=== PATIENT | male | born 1985 | race Caucasian/White ===

== ENCOUNTER 2016-10-10 12:49 | Emergency (ER) | payer MEDICAID ==
[~2016-10-10] VITALS: Ht 193 cm; Wt 81.6 kg
[~2016-10-10 12:49] MED LIST: BACTRIM DS 8001 TAB PO; GICOCKTAIL PO; LORTAB 5/3251 TAB PO; MINOCIN50 MG PO; NATURAL VITAM1000 MG PO; NOMEDS XX; PROTONIX 40MG T40 MG PO; TAMIFLU 75MG CA75 MG PO; TESSALON PERLE100 MG PO; ULTRAM50 MG PO; ZANTAC 150150 MG PO
[2016-10-10] MEDS ORDERED: ESCITALOPRAM10 M1 PO (13:06)
[2016-10-10] MEDS ORDERED: HYDROXYZINE PAM25 MG PO (13:07)
--- NOTE | 2016-10-10 13:17 | Urgent Treatment Center Report ---
History of Present Issue Date/Time Seen by Provider 10/10/16 1313 Visit Reason Pt arrived:Walked Presenting Problem:BURNING SENSATION ON PENIS HEAD. HAS HAD UNPROTECTED SEX WITH GF 5 DAYS PRIOR TO PAIN. PT STATES PAIN IS ONLY ON THE TIP OF HIS PENIS. DENIES REDNESS, DRAINAGE. Location if Accident: Onset of symptoms date/time:/ or onset unknown for:MEDICAL HX UNKNOWN Have you (or family members/close friends) recently traveled outside the [place]? N If Yes, where/when: Have you had exposure to infectious disease within the past month? TB? Other? Specify: Patient state that he drank alcohol on Saturday night and then played basketball all day on Saturday and didn't drink water states that he drank alot of pop on Saturday and noticed that he was urinating alot and urine was dark in color. States that he has a history of kidney stones. States that now he has an area on the head of his penis that has a burning sensation States that he recently had unprotected sex around 5 days ago denies redness, denies drainage ALLERGIES Coded Allergies: No Known Allergies (04/09/16) Home Medications Reported Medications Escitalopram Oxalate 10 MG PO DAILY #30 Hydroxyzine Pamoate 25 MG PO DAILY #60 History Medical History General CAD? No Angina: No NV: No Hypertension? No Hyperlipidemia? No CHF? No DVT? No PE? No COPD? No Asthma? No Anemia? No GERD? No Gastric ulcers? No GI Bleed? No Hernia? Yes Thyroid Problems? No Hypothyroidism? No CVA? No Seizures? No Diabetes? No Renal Insuffiency? No UTI? Yes Stones? Yes BPH? No GB Disease: No Nephritic Syndrome? No Asplenia? No Hepatitis? No Sickle Cell Disease? No Arthritis? Yes Migraines? Yes Cataracts? No Glaucoma? No MRSA? No HIV? No TB? No Anxiety? Yes Depression? No Cancer? No More? No Immunization HX DT/Tetanus 5-10 Years Ago Flu Refused Pneumonia Refuses Surgical Hx Previous Surgery?Y LT LEG AMPUTATION TONSILS/ADENOIDECTOMY LT WRIST GANGLION CYST RIGHT KNEE ARTHROSCOPY LT INGUINAL HERNIA RIGHT KNEE LUMP IN CHEST REMOVED Family History Family HX Diabetes Yes CAD No Hypertension No Hyperlipidemia No Cancer Yes TB No Social History Smoking Hx Smoker: Never Smoker Tobacco: No Packs/day N/A Alcohol Alcohol: No Review of Systems All Other Systems Reviewed and Negative Genitourinary penis tenderness. Physical Exam Vital Signs Vital Signs Date Time Temp Pulse Resp B/P Pulse O2 O2 Flow FiO2 Ox Delivery Rate 10/10 1301 98.1 75 20 134/70 98 General Appearance normal appearance, WD/WN, no apparent distress Respiratory Status Yes: trachea midline, chest symmetrical, non tender chest. No: respiratory distress. 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 No Results/Orders Laboratory Tests 10/10/16 1318: Urine Color YELLOW, Urine Appearance Clear, Urine pH 8.5, Ur Specific [place] 1.020, Urine Protein NEGATIVE, Urine Ketones NEGATIVE, Urine Blood TRACE H, Urine Nitrate NEGATIVE, Urine Bilirubin NEGATIVE, Urine Urobilinogen 0.2, Ur Leukocyte Esterase NEGATIVE, Urine Glucose NEGATIVE Orders Procedure Date/time Status UTC URINE DIPSTICK 10/10 131 Complete CHL/GC URINE 10/10 1318 Active Departure Departure Time of Disposition 1321 Disposition DC Home or Self Care(routine) Clinical Impression Primary Impression: Penile pain Condition STABLE Referrals Danya TEAGUE,Reginaldo Chavez (Family): 3 Days-Call Office Additional Instructions Follow up in 3-5 days for results of urine send out Drink plenty of water Follow up with family doctor if symptoms continue Discharge Counseling Counseled pt/family regarding diagnosis, test results, home care, follow up needs at 1323
[2016-10-10 13:19] LABS: URINE BILIRUBIN - DIPSTICK NEGATIVE (NEG); URINE BLOOD TRACE (NEG)
[2016-10-10 13:27] VITALS: BP 134/70
[2016-10-12 10:39] LABS: Neisseria gonorrhoeae, NAA Negative (Negative)
--- OUTSIDE RECORDS SUMMARY | 2016-10-12 20:46 | External Medical Summary Rpt ---
Author Author , REX GOODMAN Address Unknown Phone [email or web address] Care Team Providers Care Telegraph Inspector Name Role Phone ALLRAN JR MANCILLA, ALLRAN Unavailable Unavailable JR LAURENT ARNOLD, ARNOLD Unavailable Unavailable ARNOLD, ARNOLD Unavailable Unavailable ARNOLD TWYLA, ARNOLD Unavailable Unavailable TWYLA ARNOLD TWYLA, ARNOLD Unavailable Unavailable TWYLA [facility] Unavailable Unavailable LIM[facility], [facility] OLIVARES ALL, OLIVARES ALL Unavailable Unavailable BAIRD RENATA, Unavailable Unavailable BAIRD RENATA [facility] Unavailable Unavailable ADULT & PED, [facility] Unavailable Unavailable [facility], [facility] ILIANA, ILIANA Unavailable Unavailable ILIANA BRUNILDA, Unavailable Unavailable ILIANA BRUNILDA FRYMAN, FRYMAN Unavailable Unavailable SARAH BETH MELI, SARAH BETH Unavailable Unavailable MELI [facility] & Unavailable Unavailable ORTHOTI, [facility] ORTHOTI [facility] & Unavailable Unavailable ORTHOTI, [facility] ORTHOTI [facility] Unavailable Unavailable &ORTHOTIC, [facility] &ORTHOTIC [facility] Unavailable Unavailable &ORTHOTIC, [facility] &ORTHOTIC [facility] Unavailable Unavailable INC, [facility] Unavailable Unavailable HOSPITAL P, [facility], Unavailable Unavailable [facility] KEDING, KEDING Unavailable Unavailable KEDING, KEDING Unavailable Unavailable KEDING PRASHANTH KED[facility] Unavailable Unavailable PRASHANTH [facility] Unavailable Unavailable IMAG[facility], [facility] Unavailable Unavailable [facility] Unavailable Unavailable [facility] Un[facility] Unavailable Un[facility] Unavailable Unavailable [facility], [facility] CORTEZ, CORTEZ Unavailable Unavailable ZEE SHE, Unavailable Unavailable ZEE SHE STROUB, STROUB Unavailable Unavailable DANIAL YANCY, DANIAL Unavailable Unavailable TRUDY RUBY Unavailable Unavailable TRUDY BARRERA Unavailable Unavailable Purpose Continuity of Care Document - 07-25-2012 through 2016 Problems Code Diagnosis DOS Provider Status M545 LOW BACK 07-19-2016 [facility] PAIN J40 BRONCHITIS 07-09-2016 [facility] NOT PHYSICIANS SPECIFIED GROUP ACUTE OR CHRONIC U43573 GANGLION 07-02-2016 [facility] RIGHT WRIST PHYSICIANS GROUP 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 [id number] ACQUIRED 06-15-2016 [facility] PROSTHETICS RIGHT LEG & ORTHOTI BELOW KNEE J71304 PAIN IN 04-09-2016 [place] [facility] G57616 PAIN IN 04-09-2016 [place] [facility] [id number] UNSPECIFIED 04-09-2016 [facility] LEFT HIP PLLC INITIAL ENCOUNTER [id number] CONTUSION 04-09-2016 [facility] OF LEFT PHYSICIANS, KNEE PLLC INITIAL ENCOUNTER Z0100 ENCOUNTER 02-29-2016 [facility] EXAM EYES & VISION W/O ABNORMAL FIND J069 ACUTE UPPER 02-28-2016 [facility] RESPIRATORY INFECTION UNSPECIFIED [id number] COMPLETE 05-13-2015 [facility] TRAUM AMP PROSTHETICS BETWN KNEE & ORTHOTI ANKLE UNS LEG INIT K3580 UNSPECIFIED 03-09-2015 [facility] APPENDICITI S K37 UNSPECIFIED 03-09-2015 [facility]IC[facility] S R1031 RIGHT LOWER 03-09-2015 [place] [facility] R1110 VOMITING 03-09-2015 [place] [facility]PEC[facility] R509 FEVER 03-09-2015 [place] [facility]PECIF[facility] D290 BENIGN 02-15-2015 [facility] [place] [facility] B999 UNSPECIFIED 01-31-2015 [facility] INFECTIOUS DISEASE 4871 INFLUENZA 05-06-2014 [facility] WITH OTHER [facility] P MANIFESTATI ONS 27080 OTHER ACUTE 04-07-2014 [facility] 6111 HYPERTROPHY 04-07-2014 [facility] 00892 LUMP OR 04-07-2014 [facility] BREAST [facility] 8970 TRAUMAT AMP 01-08-2014 [facility] LEG UNILAT PROSTHETICS BELW KNEE &ORTHOTIC W/O COMP 7851 PALPITATION 07-23-2013 TRUDY SASHA S K37 UNSPECIFIED APPENDICITI S Medications Na ND Rx Da Fi Fi Am Da Di Ph RX Ph St me C No te ll ll ou ys ag ar # ys at rm s nt no ma ic us Or Da si cy ia de te s n re d ES 68 07 08 30 30 00 WA Ac CI 64 -0 -0 .0 00 L- ti TA 50 7- 4- 00 07 MA ve LO 51 20 20 49 RT NJ 95 17 17 75 AM 4 43 PH AR 10 MA CY MG #5 TA 91 BL ET HY 00 07 08 60 [address] 18 -0 -0 .0 00 L- ti OX 50 7- 4- 00 07 MA ve YZ 67 20 20 49 RT IN 40 17 17 75 E 1 54 PH PA AR M MA 25 CY MG #5 91 CA P ES 68 06 07 14 14 00 WA Ac CI 64 -2 -2 .0 00 L- ti TA 50 6- 1- 00 07 MA ve LO 51 20 20 49 RT NJ 95 17 17 56 AM 4 07 PH AR 10 MA CY MG #5 TA 91 BL ET HY 00 06 07 [address] 18 -2 -2 .0 00 L- ti OX 50 6- 1- 00 07 MA ve YZ 67 20 20 49 RT IN 40 17 17 56 E 1 10 PH PA AR M MA 25 CY MG #5 91 CA P VA 16 05 06 14 7 00 EA Ac LA 71 -2 -[address] ti CY 40 3- 6- 00 00 SI ve CL 69 20 20 48 DE OV 70 17 17 86 IR 1 26 PH AR HC MA L CY 1 GR OF AM CY NT TA HI BL AN ET A IN C AM 00 05 06 20 10 00 WA Ac OX 09 -0 -0 .0 00 L- ti IC 33 5- 2- 00 07 MA ve IL 10 20 20 48 RT LI 90 17 17 63 N 5 23 PH 50 AR 0 MA MG CY CA #5 PS 91 UL E AZ 59 05 05 6. 5 00 WA Ac IT 76 -0 -2 00 00 L- ti HR 23 1- 6- 0 07 MA ve OM 06 20 20 48 RT YC 00 17 17 54 IN 1 73 PH AR 25 MA 0 CY MG #5 TA 91 BL ET MU 68 04 05 22 7 00 WA Ac PI 46 -1 -0 .0 00 L- ti RO 20 0- 5- 00 07 MA ve CI 18 20 20 48 RT N 02 17 17 14 2% 2 62 PH AR OI MA NT CY ME NT #5 91 CARPIO 53 03 04 14 7 00 WA Ac LF 74 -2 -2 .0 00 L- ti AM 60 4- 1- 00 07 MA ve ET 27 20 20 47 RT HO 20 17 17 83 XA 5 38 PH ZO AR LE MA -T CY MP #5 DS 91 TA BL ET CE 68 03 04 14 7 00 WA Ac PH 18 -2 -1 .0 00 L- ti AL 00 2- 4- 00 07 MA ve EX 12 20 20 47 RT IN 20 17 17 80 2 27 PH 50 AR 0 MA MG CY CA #5 PS 91 UL E Results Labs Lab Lab Date Result Refere Interp Status Commen Order Detail nces retati t Range on Urinalysis macro (dipstick) panel in Urine (10-10-2016 13:18) Appeara Clear CLEAR complet nce of 017 ed Urine 13:18 Bilirub NEGATIV NEG complet in 017 E ed [Presen 13:18 ce] in Urine by Test strip Erythro TRACE NEG Abnorma complet cytes 017 l ed [Presen 13:18 ce] in Urine Color YELLOW YELLOW complet of 017 ed Urine 13:18 Ketones NEGATIV NEG complet 017 E ed [Presen 13:18 ce] in Urine by Automat ed test strip Leukocy NEGATIV NEG complet te 017 E ed esteras 13:18 e [Presen ce] in Urine by Automat ed test strip Nitrite NEGATIV NEG complet 017 E ed [Presen 13:18 ce] in Urine by Test strip Urobili 0.2 NEG complet nogen 017 ed [Presen 13:18 ce] in Urine by Test strip Streptococcus pyogenes Ag [Presence] in Unspecified specimen (09-21-2016 14:44) Strepto NOT NOTDETE complet coccus 017 DETECTE CTED ed pyogene 14:44 D s Ag [Presen ce] in Unspeci fied specime n CHLAMYDIA AND GONORRHEA TESTING (07-25-2012 09:15) Chlamyd NEGATIV complet ia 013 E ed trachom 09:15 atis rRNA [Presen ce] in Unspeci fied specime n by Probe & target amplifi cation method Neisser 05-17-2 NEGATIV complet ia 013 E ed gonorrh 09:15 oeae rRNA [Presen ce] in Unspeci fied specime n by Probe & target amplifi cation method Treponema pallidum IgG Ab [Presence] in Serum by Immunoassay (07-25-2012 09:15) Trepone 05-17-2 NON-CARLOS complet ma 013 CTIVE ed pallidu 09:15 m IgG Ab [Presen ce] in Serum by Immunoa ssay CHLAMYDIA AND GONORRHEA TESTING (07-25-2012 09:15) COLLECT 07-25-2 NA complet OR 013 ed 09:15 ETHNICI 05-17-2 WHITE, complet TY 013 NON-HIS ed 09:15 PANIC KIT -17-2 07-31-1 complet EXPIRAT 013 3 ed ION 09:15 DATE SYMPTOM 07-25- NO complet S 013 ed 09:15 REASON 07-25-2 VOLUNTE complet FOR 013 ER/MEDI ed REQUEST 09:15 ELIANE PROBLEM SPECIME 07-25-2 MALE complet N 013 URETHRA ed SOURCE 09:15 L PREGNAN 07-25-2 NO complet T 013 ed 09:15 CHART 07-25-2 NA complet NUMBER 013 ed 09:15 Chlamyd 07-25- Pending complet ia 013 ed trachom 09:15 atis rRNA [Presen ce] in Unspeci fied specime n by Probe & target amplifi cation method Neisser 07-25-2 Pending complet ia 013 ed gonorrh 09:15 oeae rRNA [Presen ce] in Unspeci fied specime n by Probe & target amplifi cation method Treponema pallidum IgG Ab [Presence] in Serum by Immunoassay (07-25-2012 09:15) COLLECT 07-25-2 NA complet OR 013 ed 09:15 ETHNICI 05-17-2 WHITE complet TY 013 ed 09:15 PURPOSE -17-2 DIAGNOS complet OF 013 TIC ed EXAM 09:15 SPECIME 07-25-2 BLOOD complet N 013 ed SOURCE 09:15 CHART 07-25-2 NA complet NUMBER 013 ed 09:15 Trepone -17-2 Pending complet ma 013 ed pallidu 09:15 m IgG Ab [Presen ce] in Serum by Immunoa ssay Procedures Procedure DOS Code Location Performer Comment CHIROPRAC 80564 [facility] TIC 7 MANIPULAT [place] SPINAL 1-2 REGIONS ASPIRATIO 23355 [facility] N&/INJECT 7 PHYSICIAN ION S GROUP GANGLION CYST ANY LOCATJ INJ J0702 [facility] BETAMETHA 7 PHYSICIAN SONE S GROUP ACETATE & PHOSPHATE 3 MG ADD LW L5673 RATE SETTER RATE SETTER EXT CSTM 7 PROSTHETI PROSTHETI MOLD/PRFA CS & CS & B FOR USE ORTHOTI ORTHOTI W/LOCK MECH INJ J0702 [facility] BETAMETHA 7 PHYSICIAN SONE S GROUP ACETATE & PHOSPHATE 3 MG ASPIRATIO 16868 [facility] N&/INJECT 7 PHYSICIAN ION S GROUP GANGLION CYST ANY LOCATJ RADEX HIP [address] [place] [address] MEDICAL UNILATERA IMAGING L WITH ASS PELVIS 2-3 VIEWS RADIOLOGI 63834 [facility] 7 MEDICAL EXAMINATI IMAGING ON KNEE 3 ASS VIEWS OPHTH 33676 [facility] 6 XM&EVAL COMPRE NEW PT 1/> VST [facility] [address] [place] TIC 6 [place]AT [place] SPINAL 1-2 REGIONS [facility] [address] [place] TIC 6 PRASHANTH PRASHANTH MANIPULAT [place] SPINAL 1-2 REGIONS [facility] [address] [place] TIC 6 PRASHANTH PRASHANTH MANIPULAT [place] SPINAL 1-2 REGIONS [facility] [address]89[address] [place] TIC 6 PRASHANTH PRASHANTH MANIPULAT [place] SPINAL 1-2 REGIONS CHIROPRA 01415 [place] TIC 6 PRASHANTH PRASHANTH MANIPULAT [place] SPINAL 1-2 REGIONS [facility] 11302 [place] TIC 6 PRASHANTH PRASHANTH MANIPULAT [place] SPINAL 1-2 REGIONS [facility] [address]415 [place] TIC 6 PRASHANTH PRASHANTH MANIPULAT [place] SPINAL 1-2 REGIONS [facility] [address]857 [place] TIC 6 PRASHANTH PRASHANTH MANIPULAT [place] SPINAL 1-2 REGIONS [facility] L5637 RATE SETTER RATE SETTER LOWER 6 PROSTHETI PROSTHETI EXTREMITY CS & CS & BELOW ORTHOTI ORTHOTI KNEE TOTAL CNTC ADD LW L5671 RATE SETTER RATE SETTER EXTRM 6 PROSTHETI PROSTHETI BELW/ABVE CS & CS & KNEE ORTHOTI ORTHOTI SUSP LOCK [facility] ADDITION L5620 RATE SETTER RATE SETTER LOWER 6 PROSTHETI PROSTHETI EXTREMITY CS & CS & TEST ORTHOTI ORTHOTI SOCKET BELOW KNEE ADDITION L5629 RATE SETTER RATE SETTER LOWER 6 PROSTHETI PROSTHETI EXTREM CS & CS & BELOW ORTHOTI ORTHOTI KNEE ACRYLIC SOCKET ADD L5910 RATE SETTER RATE SETTER ENDOSKEL 6 PROSTHETI PROSTHETI SYSTEM CS & CS & BELOW ORTHOTI ORTHOTI KNEE ALIGNABLE SYSTEM ALL LOW L5986 RATE SETTER RATE SETTER EXTREM 6 PROSTHETI PROSTHETI PROSTH CS & CS & MULTI-AXI ORTHOTI ORTHOTI AL ROTATION UNIT PROSTHETI L8470 RATE SETTER RATE SETTER C SOCK 6 PROSTHETI PROSTHETI SINGLE CS & CS & PLY ORTHOTI ORTHOTI FITTING BELOW KNEE EA ALL LW L5987 RATE SETTER RATE SETTER XTRM 6 PROSTHETI PROSTHETI PRSTH CS & CS & SHNK FT ORTHOTI ORTHOTI SYS W/VRTCL LOAD PYLN BELW KNEE L5301 RATE SETTER RATE SETTER MOLD 6 PROSTHETI PROSTHETI SOCKT CS & CS & PATTEN SACH ORTHOTI ORTHOTI FT ENDOSKEL SYS ADD LW L5673 RATE SETTER RATE SETTER EXT CSTM 6 PROSTHETI PROSTHETI MOLD/PRFA CS & CS & B FOR USE ORTHOTI ORTHOTI W/LOCK [facility] PROSTHETI L8420 RATE SETTER RATE SETTER C SOCK 6 PROSTHETI PROSTHETI MULTIPLE CS & CS & PLY BELOW ORTHOTI ORTHOTI KNEE EACH ADD LW L5645 RATE SETTER RATE SETTER EXT BELW 6 PROSTHETI PROSTHETI KNEE CS & CS & FLXIBLE ORTHOTI ORTHOTI INNR SOCKT EXT FRME ADD L5940 RATE SETTER RATE SETTER ENDOSKEL 6 PROSTHETI PROSTHETI SYSTEM CS & CS & BELW KNEE ORTHOTI ORTHOTI [facility] MAT[facility] INJ J2543 [facility] PIPERACIL 5 [facility] WAQAR INC INC SOD/TAZOB ACTAM SOD 1 G/0.125 G BLOOD 26258 [facility] COUNT 5 [facility] COMPLETE INC INC AUTO&AUTO DIFRNTL WBC COLLECTIO 87435 [facility] N VENOUS 5 [facility] BLOOD INC INC [facility] G0378 [facility] OBSERVATI [facility] ON INC INC SERVICE [facility] G0378 [facility] OBSERVATI 5 [facility] ON INC INC SERVICE PER HOUR URNLS DIP 45403 [facility] 5 [facility] STICK/TAB INC INC LET REAGENT AUTO MICROSCOP Y LAPAROSCO 97401 [facility] PIC 5 PHYSICIAN LAURENT APPENDECT S GROUP PAOLO COMPREHEN 32170 [facility] SIVE 5 [facility] METABOLIC INC INC PANEL LEVEL III 56933 [facility] SURG 5 [facility] PATHOLOGY GROSS&MELI ROSCOPIC EXAM NONINVASI 31085 [facility] VE 5 [facility] EAR/PULSE INC INC OXIMETRY SINGLE DETER BLOOD 06473 [facility] COUNT 5 [facility] COMPLETE INC INC AUTO&AUTO DIFRNTL WBC INJ J2543 [facility] PIPERACIL 5 [facility] WAQAR INC INC SOD/TAZOB ACTAM SOD 1 G/0.125 G INJECTION J2405 [facility] ONDANSETR INC INC ON HCL PER 1 MG ANESTHESI 74366 [facility] 5 ANESTH SHE INTRAPERI OF THE TONEAL BLUE LOWER ABD W/LAPS NOS INJECTION J0131 [facility] ACETAMINO INC INC PHEN 10 MG INJECTION J2710 [facility] NEOSTIGMI INC INC NE [place]ETHYLS[place] [address] [place] [address] [place] OL[facility]AR[facility] ALL ABDOMEN & 5 MEDICAL PELVIS IMAGING W/O ASS CONTRAST MATERIAL BLOOD 75176 [facility] COUNT 5 [facility] COMPLETE INC INC AUTO&[place] [address] [facility] INFUSION 5 [facility] THERAPY/P INC INC ROPHYLAXI S /DX 1ST TO 1 HR COMPREHEN 31451 [facility] SIVE 5 [facility] METABOLIC INC INC PANEL IAADI 81747 [facility] INFLUENZA 5 [facility] B VIRUS INC INC IAADI 57094 [facility] INFFLUENZ 5 [facility] A A VIRUS INC INC BIOPSY 92686 [facility] BREAST 5 [facility] [place] [address] [facility] SURG [facility] PATHOLOGY GROSS&MELI ROSCOPIC EXAM INJECTION J0131 [facility]AND 5 [facility] ACETAMINO INC INC PHEN 10 MG INJECTION J2405 [facility] 5 [facility] ONDANSETR INC INC ON HCL PER 1 MG ANES 53854 [facility] INTE 5 ANESTH YANCY EXTREMITI OF THE ES ANT BLUE TRUNK & PERINEUM NOS US BREAST 10698 [facility] UNI REAL 5 [facility] TIME INC INC WITH IMAGE COMPLETE US BREAST 72874 [facility] UNI REAL 5 MEDICAL BRUNILDA TIME IMAGING WITH ASS IMAGE LIMITED ADD LW L5671 RATE SETTER RATE SETTER EXTRM 4 PROSTHETI PROSTHETI BELW/ABVE CS CS KNEE &ORTHOTIC &ORTHOTIC SUSP LOCK [facility] ADDITION L5637 RATE SETTER RATE SETTER LOWER 4 PROSTHETI PROSTHETI EXTREMITY CS CS BELOW &ORTHOTIC &ORTHOTIC KNEE TOTAL CNTC ADDITION L5629 RATE SETTER RATE SETTER LOWER 4 PROSTHETI PROSTHETI EXTREM CS CS BELOW &ORTHOTIC &ORTHOTIC KNEE ACRYLIC SOCKET ADDITION L5620 RATE SETTER RATE SETTER LOWER 4 PROSTHETI PROSTHETI EXTREMITY CS CS TEST &ORTHOTIC &ORTHOTIC SOCKET BELOW KNEE PROSTHETI L8420 RATE SETTER RATE SETTER C SOCK 4 PROSTHETI PROSTHETI MULTIPLE CS CS PLY BELOW &ORTHOTIC &ORTHOTIC KNEE EACH ADD L5940 RATE SETTER RATE SETTER ENDOSKEL 4 PROSTHETI PROSTHETI SYSTEM CS CS BELW KNEE &ORTHOTIC &ORTHOTIC ULTRA-[facility] T MATL ADD LW L5645 RATE SETTER RATE SETTER EXT BELW 4 PROSTHETI PROSTHETI KNEE CS CS FLXIBLE &ORTHOTIC &ORTHOTIC INNR SOCKT EXT FRME ADD LW L5673 RATE SETTER RATE SETTER EXT CSTM 4 PROSTHETI PROSTHETI MOLD/PRFA CS CS B FOR USE &ORTHOTIC &ORTHOTIC W/LOCK MECH BELW KNEE L5301 RATE SETTER RATE SETTER MOLD 4 PROSTHETI PROSTHETI SOCKT CS CS PATTEN SACH &ORTHOTIC &ORTHOTIC FT ENDOSKEL SYS PROSTHETI L8470 BLUE BLUE C SOCK 4 GRASS GRASS SINGLE ARTIFICIA ARTIFICIA PLY L LIMB C L LIMB C FITTING BELOW KNEE EA ADD L5910 RATE SETTER RATE SETTER ENDOSKEL 4 PROSTHETI PROSTHETI SYSTEM CS CS BELOW &ORTHOTIC &ORTHOTIC KNEE ALIGNABLE SYSTEM [facility] 82611 [facility] REAL 4 [facility] TIME INC INC W/IMAGE DOCUMENTA TION Encounters Encounter Start End Date Code Location Performer Type Date OFFICE 98176 [facility] 7 7 T VISIT 10 MINUTES OFFICE 12335 [facility] OUTPATIEN 7 7 PHYSICIAN T VISIT S GROUP 25 MINUTES OFFICE 48884 [facility] OUTPATI[facility] 7 7 PHYSICIAN T VISIT S GROUP 15 MINUTES OFFICE 20196 [facility] OUTPATIEN 7 7 PHYSICIAN T NEW 20 S GROUP MINUTES EMERGENCY 24503 [facility] RATLIFF 7 7 PHYSICIAN DEPARTMEN S, PLLC T VISIT HIGH/URGE NT SEVERITY OFFICE 91252 [facility] T VISIT 5 INC MINUTES [facility]OSP[facility] OUTPATIEN INC T OFFICE 82359 [facility] 6 6 T VISIT 15 MINUTES OFFICE 42785 [facility] 6 6 TWYLA TWYLA T VISIT 15 MINUTES OFFICE 43377 [facility] 6 6 PRASHANTH PRASHANTH T NEW 30 MINUTES EMERGENCY 72790 [facility] DEPT 5 5 [facility] VISIT INC HIGH SEVERITY& THREAT [facility] 5 [facility] OUTPATIEN INC T OFFICE 67734 [facility] 5 5 [place] R[facility] ION ADULT & NEW/ESTAB PED PATIENT 30 MIN OFFICE 34783 [facility] OUTPATI[facility] 5 5 TWYLA TWYLA T VISIT 15 MINUTES EMERGENCY 15561 [facility] 5 5 [facility] DEPARTMEN INC T VISIT MODERATE SEVERITY [facility]OSP[facility] OUTPATIEN INC T [facility] OUTPATIEN INC T OFFICE 86638 [facility] JR OUTPATIEN 5 5 PHYSICIAN LAURENT T VISIT S GROUP 15 MINUTES HOSPITAL [facility] 5 [facility] OUTPATIEN INC T OFFICE 02292 [facility] OUTPATI[facility] 5 5 PHYSICIAN LAURENT T NEW 30 S GROUP MINUTES OFFICE 60699 [facility] 4 PHYSICIAN MELI T NEW 20 S GROUP MINUTES [facility] OUTPATIEN INC T [facility] 4 4 [facility] OUTPATIEN INC T EMERGENCY 55550 [facility] 4 4 [facility] DEPARTMEN INC T VISIT LOW/MODER SEVERITY EMERGENCY 25509 TRUDY BAEZ 4 4 DEPARTMEN T VISIT HIGH/URGE NT SEVERITY
--- OUTSIDE RECORDS SUMMARY | 2016-10-12 20:46 | External Medical Summary Rpt ---
Author Author , REX GOODMAN Address Unknown Phone [email or web address] Team Providers Care Statistics Intern Name Role Phone ALLRAN JR MANCILLA, ALLRAN [...] BETH MELI, SARAH BETH Unavailable Unavailable MELI [facility] & Unavailable Unavailable ORTHOTI, [facility] & ORTHOTI [facility] & Unavailable Unavailable ORTHOTI, [facility] & ORTHOTI [facility] Unavailable Unavailable &ORTHOTIC, TESTER [facility]MAT[facility] [employer] &ORTHOTIC [facility] Unavailable Unavailable &ORTHOTIC, TESTER ARMATURE [facility] &ORTHOTIC [facility] Unavailable Unavailable INC, [facility] Unavailable Unavailable [facility]PITAL P, [facility], Unavailable Unavailable [facility], KEDING Unavailable Unavailable K[facility], K[facility]ING Unavailable Unavailable [facility] PRASHANTH [facility] Unavailable Unavailable PRASHANTH [facility] Unavailable Unavailable [facility], [facility] Unavailable Unavailable [...] BACK 07-19-2016 [place] PAIN J40 BRONCHITIS 07-09-2016 [facility] NOT PHYSICIANS SPECIFIED GROUP ACUTE OR CHRONIC [id number] GANGLION 07-02-2016 [facility] RIGHT WRIST PHYSICIANS GROUP 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-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 X13195 ACQUIRED 06-15-2016 [facility] ABSENCE OF PROSTHETICS RIGHT LEG & ORTHOTI BELOW KNEE B14168 PAIN IN 04-09-2016 [place] [facility] K71231 PAIN IN 04-09-2016 [place] LEFT [facility]EE [facility] [id number] UNSPECIFIED 04-09-2016 [facility] PH[facility]ICIANS, LEFT HIP PLLC INITIAL ENCOUNTER [id number] CONTUSION 04-09-2016 ANJEL OF LEFT PHYSICIANS, KNEE PLLC INITIAL ENCOUNTER Z0100 ENCOUNTER 02-29-2016 AR[facility]EL EXAM EYES & VISION W/O ABNORMAL FIND J069 ACUTE UPPER 02-28-2016 [facility] RESPIRATORY INFECTION UNSPECIFIED [id number] COMPLETE 05-13-2015 [facility] TRAUM AMP PROSTHETICS BETWN KNEE & ORTHOTI ANKLE UNS LEG INIT K3580 UNSPECIFIED 03-09-2015 [facility] APPENDICITI S K37 UNSPECIFIED 03-09-2015 [facility] PHYSICIANS, APPENDICITI PLLC S R1031 RIGHT LOWER 03-09-2015 [place] [facility] R1110 VOMITING 03-09-2015 [place] UNSPECIFIED [facility]ICAL IM[facility]ING ASS R509 FEVER 03-09-2015 [place] [facility]PEC[facility]IED [facility] D290 BENIGN 02-15-2015 [facility] [place] PEN[facility] ADULT & PED B999 UNSPECIFIED 01-31-2015 [facility] INFECTIOUS DISEASE 4871 INFLUENZA 05-06-2014 [facility] WITH OTHER [facility] P MANIFESTATI ONS 62792 OTHER ACUTE 04-07-2014 [facility] PAIN PHYSICIANS GROUP 6111 HYPERTROPHY 04-07-2014 [facility] 97390 LUMP OR 04-07-2014 [facility] IN ANESTH OF BREAST THE BLUE 8970 TRAUMAT AMP 01-08-2014 TE[facility]MAT[facility] FIELDS LEG UNILAT PROSTHETICS BELW KNEE &ORTHOTIC W/O [...] ve LO 51 20 20 49 RT AK 95 17 17 75 AM 4 43 [...] ve LO 51 20 20 49 RT AK 95 17 17 56 AM 4 07 [...] Procedure DOS Code Location Performer Comment CHIROPRAC 19427 BUT[facility] RAE TIC 7 [place]AT [place] SPINAL 1-2 [facility] ASPIRATIO 91707 [facility] N&/INJECT 7 PHYSICIAN ION S GROUP GANGLION CYST ANY LOCATJ INJ J0702 [facility] BETAMETHA 7 PHYSICIAN SONE S GROUP ACETATE & PHOSPHATE 3 MG ADD LW L5673 [facility] TESTER ARMATURE OR FIELDS EXT CSTM 7 PROSTHETI PROSTHETI MOLD/PRFA CS & CS & B FOR USE ORTHOTI ORTHOTI W/LOCK MECH INJ J0702 [facility] BETAMETHA 7 PHYSICIAN SONE S GROUP ACETATE & PHOSPHATE 3 MG ASPIRATIO 10598 [facility] N&/INJECT 7 PHYSICIAN ION S GROUP GANGLION CYST ANY LOCATJ RADEX HIP [address] [place] [address] [facility] UN[facility]ATERA IMAGING L WITH ASS PELVIS 2-3 VIEWS RADIOLOGI 84420 PSYCHIATRIC 7 MEDICAL EXAMINATI IMAGING ON KNEE 3 ASS VIEWS OPHTH 19162 [facility] 6 XM&EVAL COMPRE NEW PT 1/> [facility] [address] [place] TIC 6 MANIP[place]AT [place] SPINAL 1-2 REGIONS [facility] 37323 [place] TIC 6 PRASHANTH PRASHANTH MANIPULAT [place] TX SPINAL 1-2 REGIONS [facility] 15482 [place] TIC 6 PRASHANTH PRASHANTH MANIPULAT [place] TX SPINAL 1-2 REGIONS [facility] 90934 [place] TIC 6 PRASHANTH PRASHANTH MANIPULAT [place] TX SPINAL 1-2 REGIONS CHIROPRA 24217 [place] TIC 6 PRASHANTH PRASHANTH MANIPULAT [place] SPINAL 1-2 REGIONS [facility] 57409 [place] TIC 6 PRASHANTH PRASHANTH MANIPULAT [place] SPINAL 1-2 REGIONS [facility] [address]97 [place] TIC 6 PRASHANTH PRASHANTH [place]IPULAT [place] SPINAL 1-2 [facility] 07447 [place] TIC 6 PRASHANTH PRASHANTH [place]IPULAT [place] SPINAL 1-2 REGIONS [facility] L5637 TESTER ARMATURE OR FIELDS TESTER ARMATURE OR FIELDS LOWER 6 PROSTHETI PROSTHETI EXTREMITY CS & CS & BELOW ORTHOTI ORTHOTI KNEE TOTAL CNTC ADD LW L5671 TESTER ARMATURE OR FIELDS TESTER ARMATURE OR FIELDS EXTRM 6 PROSTHETI PROSTHETI BELW/ABVE CS & CS & KNEE ORTHOTI ORTHOTI SUSP LOCK [facility] ADDITION L5620 TESTER ARMATURE OR FIELDS TESTER ARMATURE OR FIELDS LOWER 6 PROSTHETI PROSTHETI EXTREMITY CS & CS & TEST ORTHOTI ORTHOTI SOCKET BELOW KNEE ADDITION L5629 TESTER ARMATURE OR FIELDS TESTER ARMATURE OR FIELDS LOWER 6 PROSTHETI PROSTHETI EXTREM CS & CS & BELOW ORTHOTI ORTHOTI KNEE ACRYLIC SOCKET ADD L5910 TESTER ARMATURE OR FIELDS TESTER ARMATURE OR FIELDS ENDOSKEL 6 PROSTHETI PROSTHETI SYSTEM CS & CS & BELOW ORTHOTI ORTHOTI KNEE ALIGNABLE SYSTEM ALL LOW L5986 TESTER ARMATURE OR FIELDS TESTER ARMATURE OR FIELDS EXTREM 6 PROSTHETI PROSTHETI PROSTH CS & CS & MULTI-AXI ORTHOTI ORTHOTI AL ROTATION UNIT PROSTHETI L8470 TESTER ARMATURE OR FIELDS TESTER ARMATURE OR FIELDS C SOCK 6 PROSTHETI PROSTHETI SINGLE CS & CS & PLY ORTHOTI ORTHOTI FITTING BELOW KNEE EA ALL LW L5987 TESTER ARMATURE OR FIELDS TESTER ARMATURE OR FIELDS XTRM 6 PROSTHETI PROSTHETI PRSTH CS & CS & SHNK FT ORTHOTI ORTHOTI SYS W/VRTCL LOAD PYLN BELW KNEE L5301 TESTER ARMATURE OR FIELDS TESTER ARMATURE OR FIELDS MOLD 6 PROSTHETI PROSTHETI SOCKT CS & CS & PATTEN SACH ORTHOTI ORTHOTI FT ENDOSKEL SYS ADD LW L5673 TESTER ARMATURE OR FIELDS TESTER ARMATURE OR FIELDS EXT CSTM 6 PROSTHETI PROSTHETI MOLD/PRFA CS & CS & B FOR USE ORTHOTI ORTHOTI W/LOCK [facility] PROSTHETI L8420 TESTER ARMATURE OR FIELDS TESTER ARMATURE OR FIELDS C SOCK 6 PROSTHETI PROSTHETI MULTIPLE CS & CS & PLY BELOW ORTHOTI ORTHOTI KNEE EACH ADD LW L5645 TESTER ARMATURE OR FIELDS TESTER ARMATURE OR FIELDS EXT BELW 6 PROSTHETI PROSTHETI KNEE CS & CS & FLXIBLE ORTHOTI ORTHOTI INNR SOCKT EXT FRME ADD L5940 TESTER ARMATURE OR FIELDS TESTER ARMATURE OR FIELDS ENDOSKEL 6 PROSTHETI PROSTHETI SYSTEM CS & CS & BELW KNEE ORTHOTI ORTHOTI [facility] INJ J2543 [facility] PIPERACIL 5 [facility] WAQAR INC INC SOD/TAZOB ACTAM SOD 1 G/0.125 G BLOOD 91558 [facility] COUNT 5 [facility] COMPLETE INC INC AUTO&AUTO DIFRNTL WBC COLLECTIO 84585 [facility] N VENOUS 5 [facility] BLOOD INC INC VENIPUNCT [facility] G0378 [facility] OBSERVATI 5 [facility] ON INC INC SERVICE PER [facility] G0378 [facility] [facility] OBSERVATI 5 [facility] ON INC INC SERVICE PER HOUR URNLS DIP 90680 [facility] RAND 5 [facility] STICK/TAB INC INC LET REAGENT AUTO MICROSCOP Y LAPAROSCO 35437 [facility] PIC 5 PHYSICIAN LAURENT APPENDECT S GROUP PAOLO COMPREHEN 45652 [facility] SIVE 5 [facility] METABOLIC INC INC PANEL LEVEL III 18264 [facility] SURG 5 [facility] PATHOLOGY GROSS&MELI ROSCOPIC EXAM NONINVASI 79034 [facility] VE 5 [facility] EAR/PULSE INC INC OXIMETRY SINGLE DETER BLOOD 68783 [facility] COUNT 5 [facility] COMPLETE INC INC AUTO&AUTO DIFRNTL WBC INJ J2543 [facility] PIPERACIL 5 [facility] WAQAR INC INC SOD/TAZOB ACTAM SOD 1 G/0.125 G INJECTION J2405 [facility] 5 [facility] ONDANSETR INC INC ON HCL PER 1 MG ANESTHESI 84229 [facility] A 5 ANESTH SHE INTRAPERI OF THE TONEAL BLUE LOWER ABD W/LAPS NOS INJECTION J0131 [facility] ACETAMINO INC INC PHEN 10 MG INJECTION J2710 [facility] NEOSTIGMI INC INC NE METHYLSUL [place] [address] [place] [address] [place] [facility] ALL ABDOMEN & 5 MEDICAL PELVIS IMAGING W/O ASS CONTRAST MATERIAL BLOOD 74798 [facility] COUNT 5 [facility] COMPLETE INC INC AUTO&[place] [address] [facility] [place] INFUSION 5 [facility] THERAPY/P INC INC ROPHYLAXI S /DX 1ST TO 1 HR COMPREHEN 68496 [facility] SIVE 5 [facility] METABOLIC INC INC PANEL IAADI 54188 [facility] INFLUENZA 5 [facility] B VIRUS INC INC IAADI 20648 [facility] INFFLUENZ 5 [facility] A A VIRUS INC INC BIOPSY 93520 [facility] BREAST 5 [facility] [place] [address] [facility] SURG 5 [facility] PATHOLOGY GROSS&MELI ROSCOPIC EXAM INJECTION J0131 [facility] 5 [facility] ACETAMINO INC INC PHEN 10 MG INJECTION J2405 [facility] 5 [facility] ONDANSETR INC INC ON HCL PER 1 MG ANES 35423 [facility] INTE 5 ANESTH YANCY EXTREMITI OF THE ES ANT BLUE TRUNK & PERINEUM NOS US BREAST 87620 [facility] UNI REAL 5 [facility] TIME INC INC WITH IMAGE COMPLETE US BREAST 35188 [facility] UNI REAL 5 MEDICAL BRUNILDA TIME IMAGING WITH ASS IMAGE LIMITED ADD LW L5671 TESTER ARMATURE OR FIELDS TESTER ARMATURE OR FIELDS EXTRM 4 PROSTHETI PROSTHETI BELW/ABVE CS CS KNEE &ORTHOTIC &ORTHOTIC SUSP LOCK [facility] ADDITION L5637 TESTER ARMATURE OR FIELDS TESTER ARMATURE OR FIELDS LOWER 4 PROSTHETI PROSTHETI EXTREMITY CS CS BELOW &ORTHOTIC &ORTHOTIC KNEE TOTAL CNTC ADDITION L5629 TESTER ARMATURE OR FIELDS TESTER ARMATURE OR FIELDS LOWER 4 PROSTHETI PROSTHETI EXTREM CS CS BELOW &ORTHOTIC &ORTHOTIC KNEE ACRYLIC SOCKET ADDITION L5620 TESTER ARMATURE OR FIELDS TESTER ARMATURE OR FIELDS LOWER 4 PROSTHETI PROSTHETI EXTREMITY CS CS TEST &ORTHOTIC &ORTHOTIC SOCKET BELOW KNEE PROSTHETI L8420 TESTER ARMATURE OR FIELDS TESTER ARMATURE OR FIELDS C SOCK 4 PROSTHETI PROSTHETI MULTIPLE CS CS PLY BELOW &ORTHOTIC &ORTHOTIC KNEE EACH ADD L5940 TESTER ARMATURE OR FIELDS TESTER ARMATURE OR FIELDS ENDOSKEL 4 PROSTHETI PROSTHETI SYSTEM CS CS BELW KNEE &ORTHOTIC &ORTHOTIC ULTRA-[facility] [place] MAT[place] ADD LW L5645 TESTER ARMATURE OR FIELDS TESTER ARMATURE OR FIELDS EXT BELW 4 PROSTHETI PROSTHETI KNEE CS CS FLXIBLE &ORTHOTIC &ORTHOTIC INNR SOCKT EXT FRME ADD LW L5673 TESTER ARMATURE OR FIELDS TESTER ARMATURE OR FIELDS EXT CSTM 4 PROSTHETI PROSTHETI MOLD/PRFA CS CS B FOR USE &ORTHOTIC &ORTHOTIC W/LOCK MECH BELW KNEE L5301 TESTER ARMATURE OR FIELDS TESTER ARMATURE OR FIELDS MOLD 4 PROSTHETI PROSTHETI SOCKT CS CS PATTEN SACH &ORTHOTIC &ORTHOTIC FT ENDOSKEL SYS PROSTHETI L8470 BLUE BLUE C SOCK 4 GRASS GRASS SINGLE ARTIFICIA ARTIFICIA PLY L LIMB C L LIMB C FITTING BELOW KNEE EA ADD L5910 TESTER ARMATURE OR FIELDS TESTER ARMATURE OR FIELDS ENDOSKEL 4 PROSTHETI PROSTHETI SYSTEM CS CS BELOW &ORTHOTIC &ORTHOTIC KNEE ALIGNABLE SYSTEM [facility] 48660 [facility] REAL 4 [facility] TIME INC INC W/IMAGE DOCUMENTA TION Encounters Encounter Start End Date Code Location Performer Type Date OFFICE 81628 [facility] OUTPATIEN 7 7 T VISIT 10 MINUTES OFFICE 17020 [facility] OUTPATIEN 7 7 PHYSICIAN T VISIT S GROUP 25 MINUTES OFFICE 76404 [facility] OUTPATIEN 7 7 PHYSICIAN T VISIT S GROUP 15 MINUTES OFFICE 26694 [facility] OUTPATIEN 7 7 PHYSICIAN T NEW 20 S GROUP MINUTES EMERGENCY 05010 [facility] RATLIFF 7 7 PHYSICIAN DEPARTMEN S, PLLC T VISIT HIGH/URGE NT SEVERITY OFFICE 63621 [facility] 7 7 [facility] T VISIT 5 INC MINUTES [facility] 7 7 [facility] OUTPATIEN INC T OFFICE 89577 [facility] OUTPATIEN 6 6 T VISIT 15 MINUTES OFFICE 14805 [facility] OUTPATIEN 6 6 TWYLA TWYLA T VISIT 15 MINUTES OFFICE 37731 [facility] OUTPATIEN 6 6 PRASHANTH PRASHANTH T NEW 30 MINUTES EMERGENCY 00738 [facility] DEPT 5 5 [facility] VISIT INC HIGH SEVERITY& THREAT [facility] - 5 5 [facility] OUTPATIEN INC T OFFICE 69823 [facility] 5 5 [place] R[place] ION ADULT & NEW/ESTAB PED PATIENT 30 MIN OFFICE 28360 [facility] OWENS OUTPATIEN 5 5 TWYLA TWYLA T VISIT 15 MINUTES EMERGENCY 28756 [facility] 5 5 [facility] DEPARTMEN INC T VISIT MODERATE SEVERITY [facility] 5 [facility] OUTPATIEN INC T [facility] 5 5 [facility] OUTPATIEN INC T OFFICE 47258 [facility] RUP[facility] JR OUTPATIEN 5 5 PHYSICIAN LAURENT T VISIT S GROUP 15 MINUTES [facility]OSP[facility] 5 5 [facility] OUTPATIEN INC T OFFICE 25363 [facility] [place] JR OUTPATIEN 5 5 PHYSICIAN LAURENT T NEW 30 S GROUP MINUTES OFFICE 96767 [facility] PHYSICIAN MELI T NEW 20 S GROUP MINUTES [facility] 4 [facility] OUTPATIEN INC T [facility] 4 4 [facility] OUTPATIEN INC T EMERGENCY 72438 [facility] 4 4 [facility] DEPARTMEN INC T VISIT LOW/MODER SEVERITY EMERGENCY 42062 [facility] BAEZ 4 4 DEPARTMEN T VISIT HIGH/URGE NT SEVERITY
--- OUTSIDE RECORDS SUMMARY | 2016-10-12 20:47 | External Medical Summary Rpt ---
Author Author CHIOLAYA Morrison, [employer] Organization [employer] Address Unknown Phone Unavailable Results Urinalysis macro (dipstick) panel in Urine Observa Value Referen Units Interpr Notes Date tion ce etation Range Appeara Clear CLEAR No No No Oct 2 nce of informa informa informa 2017 Urine tion in tion in tion in 1:18 PM source source source data data data Bilirub NEGATIV NEG No No No Oct 10 in E informa informa informa 2016 [Presen tion in tion in tion in 1:18 PM ce] in source source source Urine data data data by Test strip Erythro TRACE NEG No Abnorma No Oct 10 cytes informa l informa 2016 [Presen tion in tion in 1:18 PM ce] in source source Urine data data Color YELLOW YELLOW No No No Oct 2 of informa informa informa 2017 Urine tion in tion in tion in 1:18 PM source source source data data data Glucose NEG No No No Oct 2 [Mass/vol informati informati informati 2017 1:18 ume] in on in on in on in PM Urine by source source source Test data data data strip Ketones NEGATIV NEG mg/dL No No Oct 2 E informa informa 2016 [Presen tion in tion in 1:18 PM ce] in source source Urine data data by Automat ed test strip pH of 5.0 - 8.5 No Normal No Oct 2 Urine informati informati 2017 1:18 on in on in PM source source data data Protein NEG mg/dL No No Oct 2 [Mass/vol informati informati 2016 1:18 ume] in on in on in PM Urine by source source Automated data data test strip Specific 1.005 - No Normal No Oct 10 gravity 1.030 informati informati 2017 1:18 of Urine on in on in PM source source data data Leukocy NEGATIV NEG No No No Oct 2 te E informa informa informa 2017 esteras tion in tion in tion in 1:18 PM e source source source [Presen data data data ce] in Urine by Automat ed test strip Nitrite NEGATIV NEG No No No Oct 10 E informa informa informa 2016 [Presen tion in tion in tion in 1:18 PM ce] in source source source Urine data data data by Test strip Urobili 0.2 NEG E.U./dL No No Oct 10 nogen informa informa 2016 [Presen tion in tion in 1:18 PM ce] in source source Urine data data by Test strip Chlamydia/GC Amplification Observa Value Referen Units Interpr Notes Date ti ce etation Range Chlamyd Negativ Negativ No No No Oct 10 ia e e informa informa informa 2017 trachom tion in tion in tion in 1:15 PM atis source source source rRNA data data data [Presen ce] in Unspeci fied specime n by Probe & target amplifi cation method Neisser Negativ Negativ No No Perform Oct 10 ia e e informa informa ed at: 2017 gonorrh tion in tion in CB - 1:15 PM oeae source source [facility] rRNA data data [Presen [place] ce] in [address], specime [place], [place] Probe & [id number] target 69Lab Directo amplifi r: cation Vincent method Mark ti PhD, Phone: [phone] Streptococcus pyogenes Ag [Presence] in Unspecified specimen Observa Value Referen Units Interpr Notes Date tion ce etation Range Strepto NOT NOTDETE No No LOT # Sep 21 coccus DETECTE CTED informa informa N/A EXP 2017 pyogene D tion in tion in DATE 2:44 PM s Ag source source N/A [Presen data data ce] in Unspeci fied specime n CHLAMYDIA AND GONORRHEA TESTING Observa Value Referen Units Interpr Notes Date tion ce etation Range COLLECT NA No No No No July 25 OR informa informa informa informa 2013 tion in tion in tion in tion in 9:15 AM source source source source data data data data ETHNICI WHITE, No No No No July 25 TY NON-HIS informa informa informa informa 2013 PANIC tion in tion in tion in tion in 9:15 AM source source source source data data data data KIT 07-31-1 No No No No July 25 EXPIRAT 3 informa informa informa informa 2013 ION tion in tion in tion in tion in 9:15 AM DATE source source source source data data data data SYMPTOM NO No No No No July 25 S informa informa informa informa 2013 tion in tion in tion in tion in 9:15 AM source source source source data data data data REASON VOLUNTE No No No No July 25 FOR ER/MEDI informa informa informa informa 2013 REQUEST ELIANE tion in tion in tion in tion in 9:15 AM PROBLEM source source source source data data data data SPECIME MALE No No No No July 25 N URETHRA informa informa informa informa 2013 SOURCE L tion in tion in tion in tion in 9:15 AM source source source source data data data data PREGNAN NO No No No No July 25 T informa informa informa informa 2013 tion in tion in tion in tion in 9:15 AM source source source source data data data data CHART NA No No No No July 25 NUMBER informa informa informa informa 2013 tion in tion in tion in tion in 9:15 AM source source source source data data data data Chlamyd NEGATIV No No No NEGATIV July 25 ia E informa informa informa E 2013 trachom tion in tion in tion in RESULT= 9:15 AM atis source source source WITHIN rRNA data data data NORMAL [Presen ce] in LIMITSP Unspeci OSITIVE fied specime RESULT= n by Probe & ABNORMA target LEQUIVO ELIANE amplifi RESULT= cation method INDETER MINATEU NSATISF ACTORY RESULT= INVALID Neisser NEGATIV No No No NEGATIV July 25 ia E informa informa informa E 2013 gonorrh tion in tion in tion in RESULT= 9:15 AM oeae source source source WITHIN rRNA data data data NORMAL [Presen ce] in LIMITSP Unspeci OSITIVE fied specime RESULT= n by Probe & ABNORMA target LEQUIVO ELIANE amplifi RESULT= cation method INDETER MINATEU NSATISF ACTORY RESULT= INVALID THE APTIMA COMBO 2 ASSAY IS NOT INTENDE D FOR THE EVALUAT ION OF SUSPECT EDSEXUA L ABUSE OR FOR OTHER MEDICO- LEGAL INDICAT IONS. FOR THOSE PATIENT S FORWHOM A FALSE POSITIV E RESULT MAY HAVE ADVERSE PSYCHO- SOCIAL IMPACT, [facility] MM[facility]DS RETESTI NG.\.br \This report contain s patient informa tion that must be protect ed in [facility] with the Health Insuran ce Portabi lity and Account ability Act. Treponema pallidum IgG Ab [Presence] in Serum by Immunoassay Observa Value Referen Units Interpr Notes Date tion ce etation Range COLLECT NA No No No No July 25 OR informa informa informa informa 2013 tion in tion in tion in tion in 9:15 AM source source source source data data data data ETHNICI WHITE No No No No July 25 TY informa informa informa informa 2013 tion in tion in tion in tion in 9:15 AM source source source source data data data data PURPOSE DIAGNOS No No No No July 25 OF TIC informa informa informa informa 2013 EXAM tion in tion in tion in tion in 9:15 AM source source source source data data data data SPECIME BLOOD No No No No July 25 N informa informa informa informa 2013 SOURCE tion in tion in tion in tion in 9:15 AM source source source source data data data data CHART NA No No No No July 25 NUMBER informa informa informa informa 2013 tion in tion in tion in tion in 9:15 AM source source source source data data data data Trepone NON-CARLOS No No No METHOD [address] informa informa informa OF 2013 pallidu tion in tion in tion in ANALYSI 9:15 AM m IgG source source source S: Ab data data data EIANORM [Presen AL ce] in RANGE: Serum NON-CARLOS by CTIVE\. Immunoa br\This ssay report contain s patient informa tion that must be protect ed in [facility] with the Health Insuran ce Portabi lity and Account ability Act. CHLAMYDIA AND GONORRHEA TESTING Observa Value Referen Units Interpr Notes Date tion ce etation Range COLLECT NA No No No No July 25 OR informa informa informa informa 2013 tion in tion in tion in tion in 9:15 AM source source source source data data data data ETHNICI WHITE, No No No No July 25 TY NON-HIS informa informa informa informa 2013 PANIC tion in tion in tion in tion in 9:15 AM source source source source data data data data KIT 07-31-1 No No No No July 25 EXPIRAT 3 informa informa informa informa 2013 ION tion in tion in tion in tion in 9:15 AM DATE source source source source data data data data SYMPTOM NO No No No No July 25 S informa informa informa informa 2013 tion in tion in tion in tion in 9:15 AM source source source source data data data data REASON VOLUNTE No No No No July 25 FOR ER/MEDI informa informa informa informa 2013 REQUEST ELIANE tion in tion in tion in tion in 9:15 AM PROBLEM source source source source data data data data SPECIME MALE No No No No July 25 N URETHRA informa informa informa informa 2013 SOURCE L tion in tion in tion in tion in 9:15 AM source source source source data data data data PREGNAN NO No No No No July 25 T informa informa informa informa 2013 tion in tion in tion in tion in 9:15 AM source source source source data data data data CHART NA No No No No July 25 NUMBER informa informa informa informa 2013 tion in tion in tion in tion in 9:15 AM source source source source data data data data Chlamyd Pending No No No No July 25 ia informa informa informa informa 2013 trachom tion in tion in tion in tion in 9:15 AM atis source source source source rRNA data data data data [Presen ce] in Unspeci fied specime n by Probe & target amplifi cation method Neisser Pending No No No \.br\July 25 ia informa informa informa is 2013 gonorrh tion in tion in tion in report 9:15 AM oeae source source source contain rRNA data data data s [Presen patient ce] in Unspeci informa fied tion specime that n by must be Probe & target protect ed in amplifi accorda cation nce method with the Health Insuran ce Josephine whitman and Account ability Act. Treponema pallidum IgG Ab [Presence] in Serum by Immunoassay Observa Value Referen Units Interpr Notes Date tion ce etation Range COLLECT NA No No No No July 25 OR informa informa informa informa 2013 tion in tion in tion in tion in 9:15 AM source source source source data data data data ETHNICI WHITE No No No No July 25 TY informa informa informa informa 2013 tion in tion in tion in tion in 9:15 AM source source source source data data data data PURPOSE DIAGNOS No No No No July 25 OF TIC informa informa informa informa 2013 EXAM tion in tion in tion in tion in 9:15 AM source source source source data data data data SPECIME BLOOD No No No No July 25 N informa informa informa informa 2013 SOURCE tion in tion in tion in tion in 9:15 AM source source source source data data data data CHART NA No No No No July 25 NUMBER informa informa informa informa 2013 tion in tion in tion in tion in 9:15 AM source source source source data data data data Trepone Pending No No No \.br\July 25 ma informa informa informa is 2013 pallidu tion in tion in tion in report 9:15 AM m IgG source source source contain Ab data data data s [Presen patient ce] in Serum informa by brandie Immunoa that ssay must be protect ed in accorda nce with the Health Insuran ce Portabi lity and Account ability Act.
--- OUTSIDE RECORDS SUMMARY | 2016-10-12 20:47 | External Medical Summary Rpt ---
Author Author , REX GOODMAN Address Unknown Phone [email or web address] Care Team Providers Care Pickle Pumper Name Role Phone ALLRAN JR MANCILLA, ALLVIRGINIA Unavailable Unavailable JR MANCILLA ARNOLD, ARNOLD Unavailable Unavailable ARNOLD, ARNOLD Unavailable Unavailable ARNOLD TWYLA, ARNOLD Unavailable Unavailable TWYLA ARNOLD TWYLA, ARNOLD Unavailable Unavailable TWYLA [facility] Unavailable Unavailable LIMB [facility], [facility] BAIRD RENATA, Unavailable Unavailable BAIRD RENATA [facility] Unavailable Unavailable ADULT & PED, [facility] Unavailable Unavailable [facility], [facility] ILIANA BRUNILDA, Unavailable Unavailable ILIANA BRUNILDA FRYMAN, FRYMAN Unavailable Unavailable SARAH BETH MELI, SARAH BETH Unavailable Unavailable MELI 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 & Unavailable Unavailable ORTHOTI, 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 & ORTHOTI 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 & Unavailable Unavailable ORTHOTI, 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 & ORTHOTI 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 Unavailable Unavailable &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, 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 &ORTHOTIC 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 Unavailable Unavailable &ORTHOTIC, 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 &ORTHOTIC [facility] Unavailable Unavailable INC, [facility] Unavailable Unavailable HOSPITAL P, [facility], Unavailable Unavailable [facility] KEDING, KEDING Unavailable Unavailable KEDING, KEDING Unavailable Unavailable KEDING PRASHANTH, KEDING Unavailable Unavailable PRASHANTH [facility] ARNEL SEALS Unavailable Unavailable [facility] Unavailable Unavailable [facility] Un[facility], [facility] CORTEZ, CORTEZ Unavailable Unavailable ZEE SHE, Unavailable Unavailable ZEE SHE STROUB, STROUB Unavailable Unavailable DANIAL YANCY, DANIAL Unavailable Unavailable TRUDY RUBY Unavailable Unavailable TRUDY BARRERA Unavailable Unavailable Purpose Continuity of Care Document - 07-23-2013 through 2016 Problems Code Diagnosis DOS Provider Status M545 LOW BACK 07-19-2016 [place] PAIN J40 BRONCHITIS 07-09-2016 [facility] NOT PHYSICIANS SPECIFIED GROUP ACUTE OR CHRONIC [id number] GANGLION 07-02-2016 [facility] RIGHT WRIST PHYSICIANS GROUP 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 A01327 ACQUIRED 06-15-2016 SENIOR GAME DEVELOPER ABSENCE OF PROSTHETICS RIGHT LEG & ORTHOTI BELOW KNEE E69900 PAIN IN 04-09-2016 [place] [facility] J34736 PAIN IN 04-09-2016 [place] [facility] Q20211P UNSPECIFIED 04-09-2016 [facility], LEFT HIP PLLC INITIAL ENCOUNTER [id number] CONTUSION 04-09-2016 [facility] OF LEFT PHYSICIANS, KNEE PLLC INITIAL ENCOUNTER Z0100 ENCOUNTER 02-29-2016 [facility]EL EXAM EYES & VISION W/O ABNORMAL FIND J069 ACUTE UPPER 02-28-2016 [facility] RESPIRATORY INFECTION UNSPECIFIED [id number] COMPLETE 05-13-2015 SENIOR GAME DEVELOPER TRAUM AMP PROSTHETICS BETWN KNEE & ORTHOTI ANKLE UNS LEG INIT K3580 UNSPECIFIED 03-09-2015 [facility] APPENDICITI S K37 UNSPECIFIED 03-09-2015 [facility] APP[facility] S R1031 RIGHT LOWER 03-09-2015 [place] [facility] R1110 VOMITING 03-09-2015 [place] UNSPECIFIED [facility]ING ASS R509 FEVER 03-09-2015 [place] UNSPECIFIED [facility] D290 BENIGN 02-15-2015 [facility] [place] [facility] B999 UNSPECIFIED 01-31-2015 [facility] INFECTIOUS DISEASE 4871 INFLUENZA 05-06-2014 [facility] WITH OTHER [facility] P MANIFESTATI ONS 83951 OTHER ACUTE 04-07-2014 [facility] PAIN [facility]YSIC[facility]ANS GROUP 6111 HYPERTROPHY 04-07-2014 [facility] 62206 LUMP OR 04-07-2014 [facility] M[facility] IN ANESTH OF BREAST THE BLUE 8970 TRAUMAT AMP 01-08-2014 SENIOR GAME DEVELOPER LEG UNILAT PROSTHETICS BELW KNEE &ORTHOTIC W/O COMP 7851 PALPITATION 07-23-2013 TRUDY BAEZ S Medications Na ND Rx Da Fi [...] ve LO 51 20 20 49 RT GA 95 17 17 75 AM 4 43 [...] ve LO 51 20 20 49 RT GA 95 17 17 56 AM 4 07 PH AR 10 MA CY MG #5 TA 91 BL ET HY 00 06 07 [address] 18 -2 -2 .0 00 [...] AM 00 05 06 20 10 00 FL Ac OX 09 -0 -0 .0 00 L- ti IC 33 5- 2- 00 07 MA ve IL 10 20 20 48 RT LI 90 17 17 63 N 5 23 PH 50 AR 0 MA MG CY CA #5 PS 91 UL E AZ 59 05 05 6. 5 00 FL Ac IT 76 -0 -2 00 00 [...] CY CA #5 PS 91 UL E Procedures Procedure DOS Code Location Performer Comment [facility] 31963 [place] T[place] 7 [place] SPINAL 1-2 REGIONS INJ J0702 [facility] BETAMETHA 7 PHYSICIAN SONE S GROUP ACETATE & PHOSPHATE 3 MG ASPIRATIO 00590 [facility] N&/INJECT 7 PHYSICIAN ION S GROUP GANGLION CYST ANY LOCATJ ADD LW L5673 SENIOR GAME DEVELOPER SENIOR GAME DEVELOPER EXT CSTM 7 PROSTHETI PROSTHETI MOLD/PRFA CS & CS & B FOR USE ORTHOTI ORTHOTI W/LOCK [facility] ASPIRATIO 93573 [facility] N&/INJECT 7 PHYSICIAN ION S GROUP GANGLION CYST ANY LOCATJ INJ J0702 [facility] BETAMETHA 7 PHYSICIAN SONE S GROUP ACETATE & PHOSPHATE 3 MG RADIOLOGI 17276 [facility] EXAMINATI INC INC ON KNEE 3 VIEWS RADEX HIP 42012 [facility] RAND 7 [facility] UNILATERA INC INC L WITH PELVIS 2-[address] [facility] 6 XM&EVAL COMPRE NEW PT 1/> [facility] [address] [place] 6 [place] SPINAL 1-2 REGIONS [facility] 50422 [place] T[place] 6 PRASHANTH PRASHANTH [place]IP[place]AT [place] SPINAL 1-2 REGIONS [facility] 71797 [place] TIC 6 PRASHANTH PRASHANTH MANIPULAT [place] SPINAL 1-2 REGIONS [place] 88414 [place] TIC 6 PRASHANTH PRASHANTH MANIPULAT [place] SPINAL 1-2 REGIONS [facility] 76155 [place] TIC 6 PRASHANTH PRASHANTH MANIPULAT [place] SPINAL 1-2 REGIONS CH[place]OPRA 09935 [place] TIC 6 PRASHANTH PRASHANTH MANIPULAT [place] SPINAL 1-2 REGIONS [place] 35088 [place] TIC 6 PRASHANTH PRASHANTH MANIPULAT [place] SPINAL 1-2 REGIONS CH[place]OPRA 67379 [place] TIC 6 PRASHANTH PRASHANTH MANIPULAT [place] SPINAL 1-2 REGIONS ADD LW L5673 SENIOR GAME DEVELOPER SENIOR GAME DEVELOPER EXT CSTM 6 PROSTHETI PROSTHETI MOLD/PRFA CS & CS & B FOR USE ORTHOTI ORTHOTI W/LOCK [facility] BELW KNEE L5301 SENIOR GAME DEVELOPER SENIOR GAME DEVELOPER MOLD 6 PROSTHETI PROSTHETI SOCKT CS & CS & PATTEN SACH ORTHOTI ORTHOTI FT ENDOSKEL SYS ADDITION L5620 SENIOR GAME DEVELOPER SENIOR GAME DEVELOPER LOWER 6 PROSTHETI PROSTHETI EXTREMITY CS & CS & TEST ORTHOTI ORTHOTI SOCKET BELOW KNEE ADDITION L5629 SENIOR GAME DEVELOPER SENIOR GAME DEVELOPER LOWER 6 PROSTHETI PROSTHETI EXTREM CS & CS & BELOW ORTHOTI ORTHOTI KNEE ACRYLIC SOCKET ADDITION L5637 SENIOR GAME DEVELOPER SENIOR GAME DEVELOPER LOWER 6 PROSTHETI PROSTHETI EXTREMITY CS & CS & BELOW ORTHOTI ORTHOTI KNEE TOTAL CNTC ALL LW L5987 SENIOR GAME DEVELOPER SENIOR GAME DEVELOPER XTRM 6 PROSTHETI PROSTHETI PRSTH CS & CS & SHNK FT ORTHOTI ORTHOTI SYS W/VRTCL LOAD PYLN ADD LW L5645 SENIOR GAME DEVELOPER SENIOR GAME DEVELOPER EXT BELW 6 PROSTHETI PROSTHETI KNEE CS & CS & FLXIBLE ORTHOTI ORTHOTI INNR SOCKT EXT FRME ADD LW L5671 SENIOR GAME DEVELOPER SENIOR GAME DEVELOPER EXTRM 6 PROSTHETI PROSTHETI BELW/ABVE CS & CS & KNEE ORTHOTI ORTHOTI SUSP LOCK [facility]5940 SENIOR GAME DEVELOPER SENIOR GAME DEVELOPER ENDOSKEL 6 PROSTHETI PROSTHETI SYSTEM CS & CS & BELW KNEE ORTHOTI ORTHOTI ULTRA-[facility] T MATL PROSTHETI L8420 SENIOR GAME DEVELOPER SENIOR GAME DEVELOPER C SOCK 6 PROSTHETI PROSTHETI MULTIPLE CS & CS & PLY BELOW ORTHOTI ORTHOTI KNEE EACH ADD L5910 SENIOR GAME DEVELOPER SENIOR GAME DEVELOPER ENDOSKEL 6 PROSTHETI PROSTHETI SYSTEM CS & CS & BELOW ORTHOTI ORTHOTI KNEE ALIGNABLE SYSTEM ALL LOW L5986 SENIOR GAME DEVELOPER SENIOR GAME DEVELOPER EXTREM 6 PROSTHETI PROSTHETI PROSTH CS & CS & MULTI-AXI ORTHOTI ORTHOTI AL ROTATION UNIT PROSTHETI L8470 SENIOR GAME DEVELOPER SENIOR GAME DEVELOPER C SOCK 6 PROSTHETI PROSTHETI SINGLE CS & CS & PLY ORTHOTI ORTHOTI FITTING BELOW KNEE [facility] HOSP[facility] G0378 [facility] OBSERVATI 5 [facility] ON INC INC SERVICE PER HOUR BLOOD 18172 [facility] COUNT 5 [facility] COMPLETE INC INC AUTO&AUTO DIFRNTL WBC COLLECTIO 31529 [facility] N VENOUS 5 [facility] BLOOD INC INC VENIPUNCT URE INJ J2543 [facility] PIPERACIL 5 [facility] WAQAR INC INC SOD/TAZOB ACTAM SOD 1 G/0.125 G INJECTION J2405 [facility] ONDANSETR INC INC ON HCL PER 1 MG INJ J2543 [facility] PIPERACIL 5 [facility] WAQAR INC INC SOD/TAZOB ACTAM SOD 1 G/0.125 G LEVEL III 89036 [facility] SURG 5 [facility] PATHOLOGY GROSS&[place] [address] [facility] ABDOMEN & 5 [facility] PELVIS INC INC W/O CONTRAST MATERIAL INJECTION J0131 [facility] ACETAMINO INC INC PHEN 10 MG URNLS DIP 69607 [facility] STICK/TAB INC INC LET REAGENT AUTO MICROSCOP Y BLOOD 09602 [facility] COUNT 5 [facility] COMPLETE INC INC AUTO&AUTO DIFRNTL WBC ANESTHESI 11082 [facility] A 5 ANESTH SHE INTRAPERI OF THE TONEAL BLUE LOWER ABD W/LAPS NOS HOSPITAL G0378 [facility] OBSERVATI 5 [facility] ON INC INC SERVICE PER HOUR NONINVASI 81971 [facility] VE 5 [facility] EAR/PULSE INC INC OXIMETRY SINGLE DETER INJECTION J2710 [facility] NEOSTIGMI INC INC NE METHYLSUL FATE UP TO 0.5 MG COMPREHEN 59949 [facility] SIVE 5 [facility] METABOLIC INC INC PANEL LAPAROSCO 13273 [facility] PIC 5 [facility] APPENDECT INC INC PAOLO COMPREHEN 50868 [facility] SIVE 5 [facility] METABOLIC INC INC PANEL BLOOD 32622 [facility] COUNT 5 [facility] COMPLETE INC INC AUTO&[place] [address] [facility] INFUSION 5 [facility] THERAPY/P INC INC ROPHYLAXI S /DX 1ST TO 1 HR IAADI 76376 [facility] INFLUENZA 5 [facility] B VIRUS INC INC IAADI 77023 [facility] INFFLUENZ 5 [facility] A A VIRUS INC INC INJECTION J0131 [facility] ACETAMINO INC INC [place] 10 [place] [address] [facility] SURG [address] [place] [address] PATHOLOGY GROSS&MELI ROSCOPIC EXAM INJECTION J2405 [facility] ONDANSETR INC INC ON HCL PER 1 MG BIOPSY 02051 [facility] RUPERT DIAS BREAST 5 PHYSICIAN LAURENT SMALLS S GROUP INCISIONA L ANES 45258 [facility] 5 ANESTH YANCY EXTREMITI OF THE ES ANT BLUE TRUNK & PERINEUM NOS US BREAST 64112 [facility] UNI REAL 5 [facility] TIME INC INC WITH IMAGE COMPLETE US BREAST 70410 [place] UNI REAL 5 MEDICAL BRUNILDA TIME IMAGING WITH ASS IMAGE LIMITED PROSTHETI L8470 [facility] C SOCK 4 GRASS GRASS SINGLE ARTIFICIA ARTIFICIA PLY L LIMB C L LIMB C FITTING BELOW KNEE EA PROSTHETI L8420 SENIOR GAME DEVELOPER SENIOR GAME DEVELOPER C SOCK 4 PROSTHETI PROSTHETI MULTIPLE CS CS PLY BELOW &ORTHOTIC &ORTHOTIC KNEE EACH ADD L5910 SENIOR GAME DEVELOPER SENIOR GAME DEVELOPER ENDOSKEL 4 PROSTHETI PROSTHETI SYSTEM CS CS BELOW &ORTHOTIC &ORTHOTIC KNEE ALIGNABLE SYSTEM ADD L5940 SENIOR GAME DEVELOPER SENIOR GAME DEVELOPER ENDOSKEL 4 PROSTHETI PROSTHETI SYSTEM CS CS BELW KNEE &ORTHOTIC &ORTHOTIC ULTRA-L[facility] T MATL ADD LW L5645 SENIOR GAME DEVELOPER SENIOR GAME DEVELOPER EXT BELW 4 PROSTHETI PROSTHETI KNEE CS CS FLXIBLE &ORTHOTIC &ORTHOTIC INNR SOCKT EXT FRME BELW KNEE L5301 SENIOR GAME DEVELOPER SENIOR GAME DEVELOPER MOLD 4 PROSTHETI PROSTHETI SOCKT CS CS PATTEN SACH &ORTHOTIC &ORTHOTIC FT ENDOSKEL SYS ADD LW L5673 SENIOR GAME DEVELOPER SENIOR GAME DEVELOPER EXT CSTM 4 PROSTHETI PROSTHETI MOLD/PRFA CS CS B FOR USE &ORTHOTIC &ORTHOTIC W/LOCK [facility] ADDITION L5620 SENIOR GAME DEVELOPER SENIOR GAME DEVELOPER LOWER 4 PROSTHETI PROSTHETI EXTREMITY CS CS TEST &ORTHOTIC &ORTHOTIC SOCKET BELOW KNEE ADD LW L5671 SENIOR GAME DEVELOPER SENIOR GAME DEVELOPER EXTRM 4 PROSTHETI PROSTHETI BELW/ABVE CS CS KNEE &ORTHOTIC &ORTHOTIC SUSP LOCK [facility] ADDITION L5637 SENIOR GAME DEVELOPER SENIOR GAME DEVELOPER LOWER 4 PROSTHETI PROSTHETI EXTREMITY CS CS BELOW &ORTHOTIC &ORTHOTIC KNEE TOTAL CNTC ADDITION L5629 SENIOR GAME DEVELOPER SENIOR GAME DEVELOPER LOWER 4 PROSTHETI PROSTHETI EXTREM CS CS BELOW &ORTHOTIC &ORTHOTIC KNEE ACRYLIC SOCKET [facility] 98975 [facility] 4 MEDICAL BRUNILDA TIME IMAGING W/IMAGE ASS DOCUMENTA TION Encounters Encounter Start End Date Code Location Performer Type Date OFFICE 85151 [facility] OUT[facility] 7 7 T VISIT 10 MINUTES OFFICE 74054 [facility] FRY[facility] OUTPATIEN 7 7 PHYSICIAN T VISIT S GROUP 25 MINUTES OFFICE 86929 [facility] OUTPATIEN 7 7 PHYSICIAN T VISIT S GROUP 15 MINUTES OFFICE 55806 [facility] OUTPATIEN 7 7 PHYSICIAN T NEW 20 S GROUP MINUTES OFFICE 90723 [facility] 7 7 [facility] T VISIT 5 INC MINUTES EMERGENCY 04376 [facility] RATLIFF 7 7 PHYSICIAN DEPARTMEN S, PLLC T VISIT HIGH/URGE NT SEVERITY [facility]OSP[facility] 7 7 [facility] OUTPATIEN INC T OFFICE 48785 [facility] OUTPATIEN 6 6 T VISIT 15 MINUTES OFFICE 68063 [facility] OUTPAT[facility] 6 6 TWYLA TWYLA T VISIT 15 MINUTES OFFICE 35849 [facility] OUTPATIEN 6 6 PR[facility]AN[facility] PRASHANTH T NEW 30 MINUTES HOSPITAL [facility] 5 5 [facility] OUTPATIEN INC T EMERGENCY 77741 [facility] DEPT 5 5 [facility] VISIT INC HIGH SEVERITY& THREAT FUNCJ OFFICE 23107 [facility] 5 5 [place] R[place] ION ADULT & NEW/ESTAB PED PATIENT 30 MIN OFFICE 71779 [facility] OUTPATIEN 5 5 TWYLA TWYLA T VISIT 15 MINUTES [facility]OSPITAL [facility] 5 5 [facility] OUTPATIEN INC T EMERGENCY 87196 [facility] 5 5 [facility] T VISIT P MODERATE SEVERITY [facility]OSP[facility] 5 5 [facility] OUTPATIEN INC T OFFICE 73929 [facility] DIAS OUTPATIEN 5 5 PHYSICIAN LAURENT T VISIT S GROUP 15 MINUTES [facility]OSPITAL [facility] 5 5 [facility] OUTPATIEN INC T OFFICE 39168 [facility] RUPERT JR OUTPATIEN 5 5 PHYSICIAN LAURENT T NEW 30 S GROUP MINUTES OFFICE 16075 [facility] SARAH BETH OUTPATIEN 4 4 PHYSICIAN MELI T NEW 20 S GROUP MINUTES [facility]OSP[facility] 4 4 [facility] OUTPATIEN INC T [facility]OSP[facility] 4 4 [facility] OUTPATIEN INC T EMERGENCY 07039Jeremy RAND 4 4 [facility] DEPARTMEN INC T VISIT LOW/MODER SEVERITY EMERGENCY 87480 TRUDY BAEZ 4 4 DEPARTMEN T VISIT HIGH/URGE NT SEVERITY
--- OUTSIDE RECORDS SUMMARY | 2016-10-12 20:47 | External Medical Summary Rpt ---
[...] data [Presen [place] ce] in [address] [facility] [address], [place] Probe & [id number] target 69Lab Directo amplifi r: cation Vincent method Mark ti PhD, Phone: [phone] Streptococcus pyogenes Ag [Presence] in Unspecified specimen [...] MAY HAVE ADVERSE PSYCHO- SOCIAL IMPACT, [facility]DS RETESTI NG.\.br \This report contain s patient informa tion that [facility]ity [...] tion that [facility] be [facility] Port[facility] lity [...]
--- OUTSIDE RECORDS SUMMARY | 2016-10-12 20:47 | External Medical Summary Rpt ---
Author Author , REX GOODMAN Address Unknown Phone [email or web address] Care Team Providers Care Senior Mechanical Project Manager Name Role Phone ALLRAN JR MANCILLA, ALLVIR[place] Unavailable Unavailable JR MANCILLA ARNOLD, ARNOLD Unavailable Unavailable ARNOLD, ARNOLD Unavailable Unavailable ARNOLD TWYLA, ARNOLD Unavailable Unavailable TWYLA ARNOLD TWYLA, ARNOLD Unavailable Unavailable TWYLA [facility] Unavailable Unavailable [facility], [facility] BAIRD RENATA, Unavailable Unavailable BAIRD RENATA [facility] Unavailable Unavailable ADULT & PED, [facility] Unavailable Unavailable [facility] ILIANA BRUNILDA, Unavailable Unavailable ILIANA BRUNILDA FRYMAN, FRYMAN Unavailable Unavailable SARAH BETH MELI, SARAH BETH Unavailable Unavailable MELI SEARCH ENGINE [employer] & Unavailable Unavailable ORTHOTI, SEARCH ENGINE [employer] PROST[employer] & ORTHOTI SEARCH [employer] & Unavailable Unavailable ORTHOTI, SEARCH ENGINE OPTIM[employer] PROSTHET[employer] & ORTHOTI SEARCH ENGINE [employer] Unavailable Unavailable &ORTHOTIC, SEARCH ENGINE OPTIMIZER PROSTHETICS &ORTHOTIC SEARCH ENGINE [employer] PROST[employer] Unavailable Unavailable &ORTHOTIC, SEARCH ENGINE OPTIMIZER PROSTHETICS &ORTHOTIC [facility] Unavailable Unavailable INC, [facility] Unavailable Unavailable HOSPITAL P, [facility] P [facility], Unavailable Unavailable [facility] KEDING, KEDING Unavailable Unavailable KEDING, KEDING Unavailable Unavailable KEDING PRASHANTH, KEDING Unavailable Unavailable PRASHANTH [facility] Unavailable [facility], [facility] ARNEL SEALS Unavailable Unavailable [...] BACK 07-19-2016 [facility] PAIN J40 BRONCHITIS 07-09-2016 [facility] NOT PHYSICIANS SPECIFIED GROUP ACUTE OR CHRONIC [id number] GANGLION 07-02-2016 [facility] RIGHT WRIST PHYSICIANS GROUP 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-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 N88646 ACQUIRED 06-15-2016 SEARCH ENGINE OPTIM[employer] ABSENCE OF PROSTHETICS RIGHT LEG & ORTHOTI BELOW KNEE [id number] PAIN IN 04-09-2016 [place] [facility] F36137 PAIN IN 04-09-2016 [place] LEFT KNEE [facility]ICAL IM[facility]ING [facility] [id number] UNSPECIFIED 04-09-2016 [facility]ICIANS, LEFT HIP PLLC INITIAL ENCOUNTER [id number] CONTUSION 04-09-2016 ANJ[facility] OF LEFT PHYSICIANS, KNEE PLLC INITIAL ENCOUNTER Z0100 ENCOUNTER 02-29-2016 ARNEL EXAM EYES & VISION W/O ABNORMAL FIND J069 ACUTE UPPER 02-28-2016 ARNOLD RESPIRATORY INFECTION UNSPECIFIED [id number] COMPLETE 05-13-2015 SEARCH ENGINE [facility]IM[facility] TRAUM AMP PROSTHETICS BETWN KNEE & ORTHOTI ANKLE UNS LEG INIT K3580 UNSPECIFIED 03-09-2015 [facility] APPENDICITI S K37 UNSPECIFIED 03-09-2015 [facility] PHYSICIANS, APPENDICITI PLLC S R1031 RIGHT LOWER 03-09-2015 [facility] R1110 VOMITING 03-09-2015 [place] UNSPECIFIED [facility]ICAL IM[facility]ING ASS R509 FEVER 03-09-2015 [place] UNSPECIFIED [facility]ICAL IM[facility]ING ASS D290 BENIGN 02-15-2015 [facility] [place] [facility]ED B999 UNSPECIFIED 01-31-2015 [facility] INFECTIOUS DISEASE 4871 INFLUENZA 05-06-2014 [facility] MANIFESTATI ONS 00846 OTHER ACUTE 04-07-2014 [facility] PAIN PHYSICIANS GROUP 6111 HYPERTROPHY 04-07-2014 [facility] [address]9110 [place]MP [place] 04-07-2014 [facility] M[facility] IN ANESTH OF BREAST THE [facility] 8970 TRAUMAT AMP 01-08-2014 SEARCH ENGINE OPTIMIZER LEG UNILAT PROSTHETICS BELW KNEE &ORTHOTIC W/O [...] ve LO 51 20 20 49 RT NM 95 17 17 75 AM 4 43 [...] ve LO 51 20 20 49 RT NM 95 17 17 56 AM 4 07 PH AR 10 MA CY MG #5 TA 91 BL ET HY 00 06 07 [address] 18 -2 -2 .0 00 [...] AM 00 05 06 20 10 00 [place] Ac OX 09 -0 -0 .0 00 L- ti IC 33 5- 2- 00 07 MA ve IL 10 20 20 48 RT LI 90 17 17 63 N 5 23 PH 50 AR 0 MA MG CY CA #5 PS 91 UL E AZ 59 05 05 6. 5 00 IL Ac IT 76 -0 -2 00 00 [...] Procedures Procedure DOS Code Location Performer Comment [facility] [address] [place] T[place] 7 [place] SPINAL 1-2 REGIONS INJ J0702 [facility] BETAMETHA 7 PHYSICIAN SONE S GROUP ACETATE & PHOSPHATE 3 MG ASPIRATIO 18323 [facility] N&/INJECT 7 PHYSICIAN ION S GROUP GANGLION CYST ANY LOCATJ ADD LW L5673 SEARCH ENGINE OPTIMIZER SEARCH ENGINE OPTIMIZER EXT CSTM 7 PROSTHETI PROSTHETI MOLD/PRFA CS & CS & B FOR USE ORTHOTI ORTHOTI W/LOCK [facility] ASPIRATIO 52165 [facility] N&/INJECT 7 PHYSICIAN ION S GROUP GANGLION CYST ANY LOCATJ INJ J0702 [facility] BETAMETHA 7 PHYSICIAN SONE S GROUP ACETATE & PHOSPHATE 3 MG RADIOLOGI 99239 [facility] EXAMINATI INC INC ON KNEE 3 VIEWS RADEX HIP 68862 [facility] 7 [facility] UNILATERA INC INC L WITH PELVIS 2-3 VIEWS OPHTH 45490 [facility] 6 XM&EVAL COMPRE NEW PT 1/> [facility] [address]66 [place] T[place] 6 [place]IP[place] SPINAL 1-2 REGIONS [facility] 61879 [place] T[place] 6 PR[facility]ANTH PRASHANTH [place] SPINAL 1-2 REGIONS [facility] 48008 [place] TIC 6 PRASHANTH PRASHANTH MANIPULAT [place] SPINAL 1-2 REGIONS [place] 50612 [place] TIC 6 PRASHANTH PRASHANTH MANIPULAT [place] SPINAL 1-2 REGIONS [facility] 71457 [place] TIC 6 PRASHANTH PRASHANTH MANIPULAT [place] SPINAL 1-2 REGIONS [place] 45618 [place] TIC 6 PRASHANTH PRASHANTH MANIPULAT [place] SPINAL 1-2 REGIONS [place] 33293 [place] TIC 6 PRASHANTH PRASHANTH MANIPULAT CAMERON TX SPINAL 1-2 REGIONS [place] 78827 [place] TIC 6 PRASHANTH PRASHANTH MANIPULAT [place] SPINAL 1-2 REGIONS ADD LW L5673 SEARCH ENGINE OPTIMIZER SEARCH ENGINE OPTIMIZER EXT CSTM 6 PROSTHETI PROSTHETI MOLD/PRFA CS & CS & B FOR USE ORTHOTI ORTHOTI W/LOCK [facility] BELW KNEE L5301 SEARCH ENGINE OPTIMIZER SEARCH ENGINE OPTIMIZER MOLD 6 PROSTHETI PROSTHETI SOCKT CS & CS & PATTEN SACH ORTHOTI ORTHOTI FT ENDOSKEL SYS ADDITION L5620 SEARCH ENGINE OPTIMIZER SEARCH ENGINE OPTIMIZER LOWER 6 PROSTHETI PROSTHETI EXTREMITY CS & CS & TEST ORTHOTI ORTHOTI SOCKET BELOW KNEE ADDITION L5629 SEARCH ENGINE OPTIMIZER SEARCH ENGINE OPTIMIZER LOWER 6 PROSTHETI PROSTHETI EXTREM CS & CS & BELOW ORTHOTI ORTHOTI KNEE ACRYLIC SOCKET ADDITION L5637 SEARCH ENGINE OPTIMIZER SEARCH ENGINE OPTIMIZER LOWER 6 PROSTHETI PROSTHETI EXTREMITY CS & CS & BELOW ORTHOTI ORTHOTI KNEE TOTAL CNTC ALL LW L5987 SEARCH ENGINE OPTIMIZER SEARCH ENGINE OPTIMIZER XTRM 6 PROSTHETI PROSTHETI PRSTH CS & CS & SHNK FT ORTHOTI ORTHOTI SYS W/VRTCL LOAD PYLN ADD LW L5645 SEARCH ENGINE OPTIMIZER SEARCH ENGINE OPTIMIZER EXT BELW 6 PROSTHETI PROSTHETI KNEE CS & CS & FLXIBLE ORTHOTI ORTHOTI INNR SOCKT EXT FRME ADD LW L5671 SEARCH ENGINE OPTIMIZER SEARCH ENGINE OPTIMIZER EXTRM 6 PROSTHETI PROSTHETI BELW/ABVE CS & CS & KNEE ORTHOTI ORTHOTI SUSP LOCK [facility] L5940 SEARCH ENGINE OPTIMIZER SEARCH ENGINE OPTIMIZER ENDOSKEL 6 PROSTHETI PROSTHETI SYSTEM CS & CS & BELW KNEE ORTHOTI ORTHOTI ULTRA-[facility] T MATL PROSTHETI L8420 SEARCH ENGINE OPTIMIZER SEARCH ENGINE OPTIMIZER C SOCK 6 PROSTHETI PROSTHETI MULTIPLE CS & CS & PLY BELOW ORTHOTI ORTHOTI KNEE EACH ADD L5910 SEARCH ENGINE OPTIMIZER SEARCH ENGINE OPTIMIZER ENDOSKEL 6 PROSTHETI PROSTHETI SYSTEM CS & CS & BELOW ORTHOTI ORTHOTI KNEE ALIGNABLE SYSTEM ALL LOW L5986 SEARCH ENGINE OPTIMIZER SEARCH ENGINE OPTIMIZER EXTREM 6 PROSTHETI PROSTHETI PROSTH CS & CS & MULTI-AXI ORTHOTI ORTHOTI AL ROTATION UNIT PROSTHETI L8470 SEARCH ENGINE OPTIMIZER SEARCH ENGINE OPTIMIZER C SOCK 6 PROSTHETI PROSTHETI SINGLE CS & CS & PLY ORTHOTI ORTHOTI FITTING BELOW KNEE EA [facility]OSP[facility] G0378 [facility] OBSERVATI 5 [facility] ON INC INC SERVICE PER HOUR BLOOD 09997 [facility] COUNT 5 [facility] COMPLETE INC INC AUTO&AUTO DIFRNTL WBC COLLECTIO 36242 [facility] N VENOUS 5 [facility] [...] ACTAM SOD 1 G/0.125 G LEVEL III 25376 [facility]G 5 [facility] PATH[facility] GROSS&[place] [address] [facility] ABDOMEN & 5 [facility] PELVIS INC INC W/O CONTRAST MATERIAL INJECTION J0131 [facility] ACETAMINO INC INC PHEN 10 MG URNLS DIP 58312 [facility] STICK/TAB INC INC LET REAGENT AUTO MICROSCOP Y BLOOD 84981 [facility] COUNT 5 [facility] COMPLETE INC INC AUTO&AUTO DIFRNTL WBC ANESTHESI 75803 [facility] A 5 ANESTH SHE INTRAPERI OF THE TONEAL BLUE LOWER ABD W/LAPS NOS HOSPITAL G0378 [facility] OBSERVATI 5 [facility] ON INC INC SERVICE PER HOUR NONINVASI 11991 [facility] VE 5 [facility] EAR/PULSE INC INC OXIMETRY SINGLE DETER INJECTION J2710 [facility] NEOSTIGMI INC INC NE METHYLSUL FATE UP TO 0.5 MG COMPREHEN 01030 [facility] SIVE 5 [facility] METABOLIC INC INC PANEL LAPAROSCO 46547 [facility] PIC 5 [facility] APPENDECT INC INC PAOLO COMPREHEN 86806 [facility] SIVE 5 [facility] METABOLIC INC INC PANEL BLOOD 63325 [facility] COUNT 5 [facility] COMPLETE INC INC AUTO&[place] [address] [facility] INFUSION 5 [facility] THERAPY/P INC INC ROPHYLAXI S /DX 1ST TO 1 HR IAADI 82545 [facility] INFLUENZA 5 [facility] B VIRUS INC INC IAADI 59065 [facility] INFFLUENZ 5 [facility] A A VIRUS INC INC INJECTION J0131 [facility] ACETAMINO INC [place] [address] [facility] [address] [place] [address] PATHOLOGY GROSS&MELI ROSCOPIC EXAM INJECTION J2405 [facility] ONDANSETR INC INC ON HCL PER 1 MG BIOPSY 65909 [facility] DIAS BREAST 5 PHYSICIAN LAURENT SMALLS S GROUP INCISIONA L ANES 65262 [facility] 5 ANESTH YANCY EXTREMITI OF THE ES ANT BLUE TRUNK & PERINEUM NOS US BREAST 16699 [facility] UNI REAL 5 [facility] TIME INC INC WITH IMAGE COMPLETE US BREAST 65072 [place] ILIANA UNI REAL 5 MEDICAL BRUNILDA TIME IMAGING WITH ASS IMAGE LIMITED PROSTHETI L8470 [facility] C SOCK 4 GRASS GRASS SINGLE ARTIFICIA ARTIFICIA PLY L LIMB C L LIMB C FITTING BELOW KNEE EA PROSTHETI L8420 SEARCH ENGINE OPTIMIZER SEARCH ENGINE OPTIMIZER C SOCK 4 PROSTHETI PROSTHETI MULTIPLE CS CS PLY BELOW &ORTHOTIC &ORTHOTIC KNEE EACH ADD L5910 SEARCH ENGINE OPTIMIZER SEARCH ENGINE OPTIMIZER ENDOSKEL 4 PROSTHETI PROSTHETI SYSTEM CS CS BELOW &ORTHOTIC &ORTHOTIC KNEE ALIGNABLE SYSTEM ADD L5940 SEARCH ENGINE OPTIMIZER SEARCH ENGINE OPTIMIZER ENDOSKEL 4 PROSTHETI PROSTHETI SYSTEM CS CS BELW KNEE &ORTHOTIC &ORTHOTIC ULTRA-LGH T MATL ADD LW L5645 SEARCH ENGINE OPTIMIZER SEARCH ENGINE OPTIMIZER EXT BELW 4 PROSTHETI PROSTHETI KNEE CS CS FLXIBLE &ORTHOTIC &ORTHOTIC INNR SOCKT EXT FRME BELW KNEE L5301 SEARCH ENGINE OPTIMIZER SEARCH ENGINE OPTIMIZER MOLD 4 PROSTHETI PROSTHETI SOCKT CS CS PATTEN SACH &ORTHOTIC &ORTHOTIC FT ENDOSKEL SYS ADD LW L5673 SEARCH ENGINE OPTIMIZER SEARCH ENGINE OPTIMIZER EXT CSTM 4 PROSTHETI PROSTHETI MOLD/PRFA CS CS B FOR USE &ORTHOTIC &ORTHOTIC W/LOCK [facility] ADDITION L5620 SEARCH ENGINE OPTIMIZER SEARCH ENGINE OPTIMIZER LOWER 4 PROSTHETI PROSTHETI EXTREMITY CS CS TEST &ORTHOTIC &ORTHOTIC SOCKET BELOW KNEE ADD LW L5671 SEARCH ENGINE OPTIMIZER SEARCH ENGINE OPTIMIZER EXTRM 4 PROSTHETI PROSTHETI BELW/ABVE CS CS KNEE &ORTHOTIC &ORTHOTIC SUSP LOCK [facility] ADDITION L5637 SEARCH ENGINE OPTIMIZER SEARCH ENGINE OPTIMIZER LOWER 4 PROSTHETI PROSTHETI EXTREMITY CS CS BELOW &ORTHOTIC &ORTHOTIC KNEE TOTAL CNTC ADDITION L5629 SEARCH ENGINE OPTIMIZER SEARCH ENGINE OPTIMIZER LOWER 4 PROSTHETI PROSTHETI EXTREM CS CS BELOW &ORTHOTIC &ORTHOTIC KNEE ACRYLIC SOCKET [facility] [address] [facility] 4 MEDICAL BRUNILDA TIME IMAGING W/IMAGE ASS DOCUMENTA TION Encounters Encounter Start End Date Code Location Performer Type Date OFFICE 26277 [facility] OUT[facility] 7 7 T VISIT 10 MINUTES OFFICE 72158 [facility] OUTPATIEN 7 7 PHYSICIAN T VISIT S GROUP 25 MINUTES OFFICE 53724 [facility] OUTPATIEN 7 7 PHYSICIAN T VISIT S GROUP 15 MINUTES OFFICE 13203 [facility] OUTPATIEN 7 7 PHYSICIAN T NEW 20 S GROUP MINUTES OFFICE 40755 [facility] 7 7 [facility] T VISIT 5 INC MINUTES EMERGENCY 34278 ANJEL RATLIFF 7 7 PHYSICIAN DEPARTMEN S, PLLC T VISIT HIGH/URGE NT SEVERITY [facility]OSP[facility] OUTPATIEN INC T OFFICE 31428 [facility] OUTPATI[facility] 6 6 T VISIT 15 MINUTES OFFICE 10849 [facility] OUTPATI[facility] 6 6 TWYLA TWYLA T VISIT 15 MINUTES OFFICE 89347 [facility] OUTPATIEN 6 6 PRASHANTH PRASHANTH T NEW 30 MINUTES [facility]OSPITAL [facility] 5 5 [facility] OUTPATIEN INC T EMERGENCY 70769 [facility] DEPT 5 5 [facility] VISIT INC HIGH SEVERITY& THREAT FUNCJ OFFICE 21489 [facility] 5 5 [place] RENATA ION ADULT & NEW/ESTAB PED PATIENT 30 MIN OFFICE 11291 [facility] OUTPATIEN 5 5 TWYLA TWYLA T VISIT 15 MINUTES [facility]OSP[facility] 5 [facility] OUTPATIEN INC T EMERGENCY 84598 [facility] 5 5 [facility] T VISIT P MODERATE SEVERITY [facility]OSP[facility] 5 [facility] OUTPATIEN INC T OFFICE 36095 [facility] DIAS OUTPATIEN 5 5 PHYSICIAN LAURENT T VISIT S GROUP 15 MINUTES [facility]OSPITAL [facility] 5 [facility] OUTPATIEN INC T OFFICE 31921 [facility] JR OUTPATIEN 5 5 PHYSICIAN LAURENT T NEW 30 S GROUP MINUTES OFFICE 78201 [facility] SARAH BETH OUTPATIEN 4 4 PHYSICIAN MELI T NEW 20 S GROUP MINUTES [facility]OSP[facility] 4 [facility] OUTPATIEN INC T [facility] 4 4 [facility] OUTPATIEN INC T EMERGENCY 33734Jeremy RAND 4 4 [facility] DEPARTMEN INC T VISIT LOW/MODER SEVERITY EMERGENCY 51778 TRUD[facility] BAEZ 4 4 DEPARTMEN T VISIT HIGH/URGE NT SEVERITY
--- OUTSIDE RECORDS SUMMARY | 2016-10-12 20:47 | External Medical Summary Rpt ---
Demographics Preferred Language Albanian Marital Status Unknown Baptism Affiliation Unknown Race Unknown Ethnic Group Unknown Author Author , REX GOODMAN Address Unknown Phone Immunization Unable to retrieve immunization data due to connection failure with Immunization Registry. Please try again later.
--- OUTSIDE RECORDS SUMMARY | 2016-10-12 20:47 | External Medical Summary Rpt ---
Demographics Preferred Language Persian Marital Status Unknown Hinduism Affiliation Unknown Race Unknown Ethnic Group Unknown Author Author , REX GOODMAN Address Unknown Phone Immunization Unable to retrieve immunization data due to connection failure with Immunization Registry. Please try again later.
== END 2016-10-10 13:27 | disposition home or self-care (01) ==
LOC: UTC 12:49
PROVIDERS: Nurse Practitioner
DX: N48.89 Other specified disorders of penis (principal)

== ENCOUNTER → 2016-12-04 | Outpatient (CLI) | payer MEDICAID ==
[~2016-12-04] MED LIST changes: +ESCITALOPRAM10 M1 PO; +HYDROXYZINE PAM25 MG PO
[2016-12-04 10:23] LABS: HEMOGLOBIN 12.7 g/dL (14.1-18.0)
[2016-12-04 10:24] LABS: LYMPH # 1.6 K/mm3 (0.7-4.5); LYMPH % 35.3 % (10-50)
[2016-12-04 11:25] LABS: BUN 14 mg/dL (7-18)
[2016-12-04 11:34] LABS: GFR (ESTIMATED) 98 ML/MIN (>60)
[2016-12-05 06:37] LABS: Vitamin D, 25-Hydroxy 34.1 ng/mL (30.0-100.0)
== END ==
LOC: LAB 09:27
PROVIDERS: Nurse Practitioner Family
DX: R53.83 Other fatigue (principal); R68.82 Decreased libido; S88.112S Complete traumatic amputation at level between knee and ankle, left lower leg, sequela; Z79.899 Other long term (current) drug therapy

== ENCOUNTER → 2016-12-17 | Outpatient (CLI) | payer MEDICAID ==
[2016-12-18 08:44] LABS: Iron 107 ug/dL (38-169); Iron Saturation 40 % (15-55); UIBC 161 ug/dL (111-343)
== END ==
LOC: LAB 11:37
PROVIDERS: Nurse Practitioner Family
DX: D64.9 Anemia, unspecified (principal)